=== PATIENT | male | born 1980 | race Hispanic/Latino ===

== ENCOUNTER 2017-01-04 13:03 | Emergency (ER) | payer SELFPAY | END 2017-01-04 14:13 | disposition home or self-care (01) | LOC: ERS 13:03 | DX: J06.9 Acute upper respiratory infection, unspecified (principal); F41.9 Anxiety disorder, unspecified; F32.9 Major depressive disorder, single episode, unspecified; F17.210 Nicotine dependence, cigarettes, uncomplicated | CPT/HCPCS: 99406 ==

== ENCOUNTER 2017-03-14 11:33 | Inpatient (IN) | payer SELFPAY ==
[~2017-03-14 11:33] MED LIST: ISOVUE-370 76%-LOCM 1 ML ONE
[2017-03-14] MEDS ORDERED: Octreotide Acetate 1,250 MCG in Sodium Chloride 0.9% 250 ML 250 ML IVPB SCH ×2 (12:45→15:00)
[2017-03-14 12:50] LABS: #Eosinphils 0.2 thou/uL (0.0-0.7); %Eosinophils 2.2 % (0.0-10.0); %Monocytes 8.2 % (0.0-10.0); Mean Corpuscular HGB CONC 33.7 g/dL (32.0-36.0)
[2017-03-14 13:02] LABS: #Lymphocytes 1.4 thou/uL (1.20-3.40); #Monocytes 0.6 thou/uL (0.11-0.59); #Neutrophils 5.3 thou/uL (1.40-6.50); %Basophils 0.5 % (0.0-1.0); %Lymphocytes 18.6 % (21.0-51.0); %Neutrophils 70.6 % (42.0-75.0); Hemoglobin 16.8 g/dL (14.0-18.0); Mean Corpuscular Hemoglobin 32.1 pg (27.0-31.0); Mean Corpuscular Volume 95.4 fl (80.0-94.0); Mean Platelet Volume 6.8 fL (7.4-10.4); Platelet Count 182 thou/uL (130-400); RBC Distribution Width 11.1 % (11.5-14.5); Red Blood Cell (RBC) Count 5.23 mill/uL (4.70-6.10); White Blood Cell (WBC) Count 7.4 thou/uL (4.8-10.8)
[2017-03-14] MEDS ORDERED: Ondansetron HCl/PF 4 MG/2 ML Vial ONE ×2 (13:06→15:59)
--- NOTE | 2017-03-14 13:14 | RAD ---
PORTABLE CHEST 1 VIEW: DATE: 03/14/17. TIME: 12:10 p.m. HISTORY: Vomiting blood. FINDINGS: The heart size is normal. The right hemidiaphragm is elevated. No focal areas of consolidation, pne umothorax, codie pulmonary edema, or pleural effusions are seen. IMPRESSION: No acute process. POS: [facility]
[2017-03-14 13:16] LABS: ALT (SGPT) 126 U/L (8-55); AST (SGOT) 194 U/L (5-34); Albumin 4.5 g/dL (3.5-5.0); Alkaline Phosphatase 85 U/L (40-150); Anion Gap 21 mmol/L (10-20); BUN (Urea Nitrogen) 5 mg/dL (8.9-20.6); Bilirubin, Total 1.7 mg/dL (0.2-1.2); CK (CPK) 246 U/L (30-200); Calc. Creatinine Clearance 0 mL/min (70-130); Calcium 9.9 mg/dL (7.8-10.44); Carbon Dioxide 20 mmol/L (22-29); Chloride 99 mmol/L (98-107); Estimated GFR-MDRD Greater than 90; Globulin 4.8 g/dL (2.4-3.5); Glucose 159 mg/dL (70-105); Potassium 3.3 mmol/L (3.5-5.1); Protein, Total 9.3 g/dL (6.0-8.3); Sodium 137 mmol/L (136-145)
[2017-03-14 13:20] LABS: CKMB 1.1 ng/mL (0-6.6); Troponin I Less than 0.010 ng/mL (< 0.028)
[2017-03-14] MEDS ORDERED: Multivitamins, Adult 10 ML, Thiamine HCl 100 MG, Folic Acid 1 MG in Dextrose 5 %-0.45 %... IV ONE ×4 (13:30)
[2017-03-14] MEDS ORDERED: Ondansetron ODT 4 MG TAB PO PRN (14:48)
[2017-03-14] MEDS ORDERED: Ondansetron HCl/PF 4 MG/2 ML Vial IVP PRN (14:48)
[2017-03-14] MEDS ORDERED: Bisacodyl 5 MG TAB PO PRN (14:48)
[2017-03-14] MEDS ORDERED: Pantoprazole 80 MG in Sodium Chloride 0.9% 100 ML IVPB SCH (15:00)
[2017-03-14] MEDS ORDERED: Octreotide Acetate 50 MCG/ML AMP SLOW IVP SCH (15:30)
--- NOTE | 2017-03-14 15:36 | CT ---
CT ABDOMEN WITH CONTRAST CT PELVIS WITH CONTRAST: DATE: 03-14-2017 TIME: 12:58 p.m. HISTORY: 56-year-old male with left upper quadrant abdominal pain and hemetemesis. Dr. Corona discussed the findings of the rectum by telephone with Dr. Marbella Melendez of the Emergency [facility] rt[facility] at 1:14 p.m. on 03-14-2017. COMPARISON: None. TECHNIQUE: IV injection of iodinated contrast media: Administered. Oral contrast media: Not administered. FINDINGS: There is diffuse circumferential mild mural thickening of the rectum and rectosigmoid junction. The r ectum is mildly distended with stool. There are several small foci of intramural gas at the rectum. T here is mild perirectal fat stranding, especially in the presacral space. These are all findings that can be seen with stercoral colitis/proctitis, but that is typically encountered in much older patien ts, and with a greater degree of rectal distention. Pneumatosis coli can be seen in benign conditions as well as life-threating conditions. Clinical correlation is recommended. No signs of acute colonic diverticulitis. The appendix, abdominal aorta, bilateral kidneys, adrenal g lands, pancreas and spleen are normal. Diffusely low hepatic attenuation is consistent with fatty jovita er. No discrete hepatic mass lesion. Gallbladder is distended, but there is no gallbladder wall thick ening or pericholecystic edema. No small bowel dilation. No acute colon diverticulitis. No gross abno rmality of the urinary bladder. No ascites, pneumoperitoneum or abscess. Lung bases are clear. IMPRESSION: 1. Hepatic steatosis. 2. Pneumatosis and mural thickening of the rectum and distal sigmoid colon, with perirectal edema. Se e above comments. SANDI Reyes POS: [facility]
--- NOTE | 2017-03-14 15:39 | HP ---
PRIMARY CARE PHYSICIAN: None. CHIEF COMPLAINT: Vomiting blood. HISTORY OF PRESENT ILLNESS: Mr. Evans is a pleasant 36-year-old gentleman who was seen at [facility] on 03/14/2017. He reports that over the last 2-3 months, he has been having vomiting. The vomiting is accompanied b y bright red blood. He denies any chest pain or lightheadedness. He denies any fevers or chills. H e reports on and off pain in the right upper quadrant of his abdomen, attributes it to "liver pain." He has also been taking Aleve 3 times a day as needed. He reports worsening of vomiting, with 12 vomiting episodes in the last 24 hours, accompanied by bloo d. He therefore came to the emergency room. REVIEW OF SYSTEMS: The following complete review of systems was negative, unless otherwise mentioned in the HPI or below: Constitutional: Weight loss or gain, sense of well-being, ability to conduct usual activities, exerc ise tolerance. Skin/Breast: Rash, itching, changes in hair growth or loss, nail changes, breast lumps, tenderness, swelling, nipple discharge. Eyes: Vision, double vision, tearing, blind spots, pain. ENT/Mouth: Headaches (location, time of onset, duration, precipitating factors), vertigo, lightheade dness, injury. Vision, double vision, tearing, blind spots, pain, nose bleeding, colds, obstruction, discharge, dental difficulties, gingival bleeding, dentures, neck stiffness, pain, tenderness, masses in thyroid or other areas Cardiovascular: Precordial pain, substernal distress, palpitations, syncope, dyspnea on exertion, or thopnea, nocturnal paroxysmal dyspnea, edema, cyanosis, hypertension, heart murmurs, varicosities, ph lebitis, claudication. Respiratory: Pain, shortness of breath, wheezing, stridor, cough, hemoptysis, fever or night sweats Gastrointestinal: Poor appetite, dysphagia, indigestion, abdominal pain, heartburn, eructation, naus ea, vomiting, hematemesis, jaundice, constipation, or diarrhea, abnormal stools (raghu-colored, tarry, bloody, greasy, foul smelling), flatulence, hemorrhoids, recent changes in bowel habits. Genitourinary: Urgency, frequency, dysuria, nocturia, hematuria, polyuria, oliguria, unusual (or gayla nge in) color of urine, stones, hesitancy, change in size of stream, dribbling, acute retention or in continence, libido, potency. Musculoskeletal: Pain, swelling, redness or heat of muscles or joints, limitation, of motion, muscul ar weakness, atrophy, cramps. Neurologic/Psychiatric: Convulsions, paralyses, tremor, incoordination, paraesthesias, difficulties with memory of speech, sensory or motor disturbances, or muscular coordination (ataxia, tremor), emot ional problems, anxiety, depression, previous psychiatric care, unusual perceptions, hallucinations. Allergy/Immunologic: Skin rash, anemia, bleeding tendency, polydipsia, polyuria, intolerance to heat or cold. PAST MEDICAL HISTORY: He reports that he has heart rate that is greater than normal. PAST SURGICAL HISTORY: Right hand surgery. PSYCHIATRIC HISTORY: Anxiety and depression. SOCIAL HISTORY: The patient reports that he drinks on a daily basis. Half a gallon of whiskey, last in 48-72 hours. He has been drinking for 15 years. His last drink was today morning. He also repo rts occasional tobacco use. He denies recreational drug use. FAMILY HISTORY: Significant for alcoholism in his father and uncles. ALLERGIES: FLUOXETINE. CURRENT MEDICATIONS: Include propranolol 40 mg 2 times a day and clonazepam 2 mg 2 times a day as ne eded. PHYSICAL EXAMINATION: GENERAL: On examination, Mr. Evans is awake and alert, not in acute distress. VITAL SIGNS: Blood pressure is 117/63, pulse is 70. He is breathing at rate of 18, and saturating 9 4% on room air. He is afebrile. EYES: Scleral icterus present, no conjunctival pallor. ENT: Moist mucosal membranes, no oropharyngeal erythema or exudates. NECK: Supple, nontender, normal range of movement, trachea is midline. RESPIRATORY: Accessory muscles of breathing are not active. Chest wall movements are symmetric bila terally. LUNGS: Clear to auscultation without wheeze, rhonchi or crepitations. CARDIOVASCULAR: S1 and S2 are heard, regular. Peripheral pulses are palpable. No carotid bruit, no pericardial rub. ABDOMEN: Distended, mild right upper quadrant tenderness, no guarding or rigidity, bowel sounds are heard. NEUROLOGIC: Cranial nerves II-XII intact. Deep tendon reflexes are 2+. No flapping tremor. MUSCULOSKELETAL: Power is 5/5 in all 4 extremities. Normal range of movement at all major extremity joints. SKIN: No rashes, spider nevi or subcutaneous nodules. LYMPHATIC: No cervical lymphadenopathy. PSYCHIATRIC: Normal mood, normal affect, patient is oriented to person, place, and time. IMAGING DATA AND LABORATORY DATA: Mr. Evans's labs and investigations were reviewed. I reviewed his electrocardiogram, which shows normal sinus rhythm, no ST changes to suggest an acute coronary sy ndrome. I also reviewed his chest x-ray, which does not show any pulmonary infiltrates. He also had CT scan of the abdomen, report is pending at this time. Laboratory investigation show normal white count, normal hemoglobin of 6.9, normal platelet count, normal sodium, decreased potassium of 3.3, no rmal creatinine of 0.69, decreased carbon dioxide of 20, elevated anion gap of 21, elevated total monica irubin of 1.7,AST elevated at 194, ALT elevated at 126, normal alkaline phosphatase, normal troponin I and normal albumin. ASSESSMENT AND PLAN: Mr. Evans is a pleasant 36-year-old gentleman who was seen at [facility] on 03/14/2017. His problem list includes: 1. Hematemesis: Patient reports hematemesis. He is hemodynamically stable at this time, hemoglobin is normal. He will be admitted to the hospital for further management. He will be treated with oct reotide and Protonix drips. Gastroenterology Service has been consulted by emergency room physician. We will monitor hemoglobin and hematocrit and we will monitor vital signs. 2. Hypokalemia: Replace potassium. 3. Abnormal liver function tests, likely secondary to chronic alcohol abuse. He does have normal al bumin at this time. 4. Alcohol abuse: The patient has been counseled regarding alcohol cessation. We will start him on ASE protocol. 5. Elevated anion gap: Check lactic acid level. LEVEL OF RISK: High. LEVEL OF COMPLEXITY: High.
[2017-03-14] MEDS ORDERED: Fentanyl 100 MCG/2 ML VIAL ONE (15:40)
[2017-03-14 15:46] LABS: Lactic Acid 2.3 mmol/L (0.5-2.2)
[2017-03-14 15:47] LABS: Prothrombin Time 13.7 SEC (12.0-14.7)
[2017-03-14] MEDS ORDERED: GoLYTELY 4,000 ml Bottle PO SCH (17:45)
--- NOTE | 2017-03-14 18:00 | CON ---
DATE OF CONSULTATION: 03/14/2017 GASTROINTESTINAL CONSULTATION CHIEF COMPLAINT: Vomited blood, chronic nausea, and vomiting. HISTORY OF PRESENT ILLNESS: Mr. Evans is a 36-year-old man who drinks half a gallon of whiskey ev familia couple of days. He has been having nausea and vomiting daily over the last couple of months. He retches frequently throughout the day and intermittently he vomits up a small amount of blood. Last night, he vomited up a couple of ounces with hematemesis and therefore he came onto the emergency ro om for further care. He has had no abdominal pain associated with this. No diarrhea, constipation o r blood in the stool. No black stools. He was noted to be hemoccult negative in the ER. Weight has been stable. PAST MEDICAL HISTORY: Anxiety. PAST SURGICAL HISTORY: Hand surgery. FAMILY HISTORY: Positive for alcoholic cirrhosis in his father and liver cancer in his father. SOCIAL HISTORY: He has been off of drugs since age 31. He did nasal cocaine and nasal methamphetami mireya in the past. He has not smoked for a week, but has been a smoker prior to that. He drinks half a gallon of whiskey every couple of days or so. ALLERGIES: FLUOXETINE. CURRENT MEDICATIONS: As an outpatient, trazodone, clonazepam, and propranolol. REVIEW OF SYSTEMS: Negative x10 systems reviewed except as stated in the history of present illness. LABORATORY DATA: White blood cell count 7.4, hemoglobin 16.8, platelets 182, INR 1.0. Creatinine 0. 9, bilirubin 1.7, AST 194, ALT 126, alkaline phosphatase 85, and albumin 4.5. IMPRESSION: 1. Hematemesis. He has had chronic nausea and vomiting associated with excessive alcohol use and rachid cisneros has alcoholic gastritis. The blood that comes up with vomiting after retching sounds more like mild Lynn-Crane tears. He does not have signs of portal hypertension, otherwise. His volume of b leeding has been very small and his hemoglobin is normal. There is no indication that this is bleedi ng from esophageal varices. I think we can stop the octreotide at this point. 2. Abnormal CT scan. The CT showed thickening and possible pneumatosis around the rectosigmoid junc tion. He has no hematochezia, constipation or diarrhea. Colonoscopy is indicated to rule out colon cancer in this area. 3. Alcoholic hepatitis with elevated transaminases and bilirubin. RECOMMENDATIONS: 1. EGD and colonoscopy tomorrow. 2. Continue proton pump inhibitor. 3. He is on octreotide drip. We can continue this till the endoscopy. 4. Alcohol cessation is advised.
[2017-03-14] MEDS ORDERED: Promethazine HCl 25 MG/ML VIAL SLOW IVP PRN (18:10)
[2017-03-14] MEDS: NS 0.9% w/ 40 MEQ KCL 1,000 ML IV SCH (18:20)
[2017-03-14] MEDS: Morphine 4 MG/ML VIAL SLOW IVP PRN ×2 (18:53→23:52)
[2017-03-15] MEDS ORDERED: Diazepam 5 MG TAB PO SCH (01:00)
[2017-03-15] MEDS ORDERED: Diazepam 5 MG TAB PO PRN (01:05)
[2017-03-15] MEDS: NS 0.9% w/ 40 MEQ KCL 1,000 ML IV SCH ×2 (01:24→21:30)
[2017-03-15 02:25] LABS: Amphetamine Not Detected (NotDetected); Barbiturates Screen Not Detected (NotDetected); Benzodiazepine Screen Not Detected (NotDetected); Cocaine Metabolite Screen Not Detected (NotDetected); Medtox Control Line Valid? VALID (VALID); Medtox Reader # READER 4; Methadone Not Detected (NotDetected); Methamphetamine Not Detected (NotDetected); Opiate Screen Detected (NotDetected); Oxycodone Screen Not Detected (NotDetected); Phencyclidine (PCP) Not Detected (NotDetected); THC/Cannabinoid Screen Detected (NotDetected); Tricyclic Screen Not Detected (NotDetected)
[2017-03-15 05:36] LABS: ALT (SGPT) 117 U/L (8-55); AST (SGOT) 186 U/L (5-34); Albumin 3.8 g/dL (3.5-5.0); Alkaline Phosphatase 63 U/L (40-150); Anion Gap 15 mmol/L (10-20); BUN (Urea Nitrogen) 4 mg/dL (8.9-20.6); Bilirubin, Total 1.7 mg/dL (0.2-1.2); Calc. Creatinine Clearance 210 mL/min (70-130); Calcium 8.8 mg/dL (7.8-10.44); Carbon Dioxide 26 mmol/L (22-29); Chloride 100 mmol/L (98-107); Estimated GFR-MDRD Greater than 90; Globulin 3.8 g/dL (2.4-3.5); Glucose 199 mg/dL (70-105); Potassium 3.6 mmol/L (3.5-5.1); Protein, Total 7.6 g/dL (6.0-8.3); Sodium 137 mmol/L (136-145)
[2017-03-15 05:54] LABS: Syphilis Antibody Nonreactive (Nonreactive); Syphilis Antibody Index 0.08 S/CO (<1.00 Non-Reactive)
[2017-03-15 05:56] LABS: #Eosinphils 0.1 thou/uL (0.0-0.7); #Monocytes 0.3 thou/uL (0.11-0.59); #Neutrophils 2.3 thou/uL (1.40-6.50); %Basophils 1.1 % (0.0-1.0); %Eosinophils 2.8 % (0.0-10.0); %Lymphocytes 25.9 % (21.0-51.0); %Monocytes 8.5 % (0.0-10.0); %Neutrophils 61.8 % (42.0-75.0); Hemoglobin 13.9 g/dL (14.0-18.0); Mean Corpuscular HGB CONC 33.6 g/dL (32.0-36.0); Mean Corpuscular Hemoglobin 32.4 pg (27.0-31.0); Mean Corpuscular Volume 96.5 fl (80.0-94.0); Mean Platelet Volume 7.1 fL (7.4-10.4); PLT Morphology Comment Appears Decreased; Platelet Count 97 thou/uL (130-400); RBC Distribution Width 11.2 % (11.5-14.5); Red Blood Cell (RBC) Count 4.29 mill/uL (4.70-6.10); White Blood Cell (WBC) Count 3.7 thou/uL (4.8-10.8)
[2017-03-15] MEDS: Multivitamin W/ Minerals 1 TAB PO SCH (08:49)
[2017-03-15] MEDS: Folic Acid 1 MG TAB PO SCH (08:49)
[2017-03-15] MEDS: Morphine 4 MG/ML VIAL SLOW IVP PRN (08:50)
[2017-03-15 09:03] VITALS: BMI 34.6
[2017-03-15] MEDS ORDERED: clonazePAM 1 MG TAB PO PRN (09:05)
[2017-03-15 10:12] LABS: Magnesium 1.8 mg/dL (1.6-2.6); Phosphorus 2.7 mg/dL (2.3-4.7)
[2017-03-15] MEDS ORDERED: clonazePAM 0.5 MG TAB PO SCH (11:00)
--- NOTE | 2017-03-15 15:02 | OP ---
DATE OF PROCEDURE: 03/15/2017 PROCEDURES: Esophagogastroduodenoscopy with biopsy and colonoscopy. PREOPERATIVE DIAGNOSES: Chronic nausea and vomiting and hematemesis and abnormal CT scan showing nicho e possible thickening at the rectosigmoid. OPERATIVE NOTE: Informed consent was obtained from the patient. He was sedated with total intraveno us anesthesia. The bite block was placed and the endoscope was advanced easily to the second portion of the duodenum and retroflexion was performed in the stomach. The esophagus was normal. The GE ju nction was normal. The stomach had severe erosive gastritis in the antrum. Biopsies were obtained t o rule out H. pylori. The retroflexed views in the stomach were unremarkable. The pylorus in first and second portions of the duodenum were normal. Duodenal biopsies were taken to rule out celiac dis ease. The patient was turned around. Rectal exam was performed and was normal. The colonoscope was advanced to the terminal ileum without difficulty. The mucosa of the terminal ileum was normal. Th e ileocecal valve and appendiceal orifice were clearly identified. The preparation quality was good. There was mild diverticulosis at the hepatic flexure. The remainder of the colonic mucosa was norm al. Retroflexed views in the rectum were normal. IMPRESSION: 1. Severe erosive gastritis in the antrum. Biopsies obtained to rule out Helicobacter pylori. 2. Otherwise normal esophagogastroduodenoscopy. Duodenal biopsies taken to rule out celiac disease. 3. Diverticulosis at the hepatic flexure. 4. Otherwise normal ileal colonoscopy. RECOMMENDATIONS: 1. Await histopathology. 2. Proton pump inhibitor daily. 3. Alcohol cessation. 4. Marijuana cessation. 5. Okay to discharge home from a GI perspective. 6. Follow up in the office in a month.
[2017-03-15] MEDS ORDERED: Lorazepam 0.5 MG TAB PO PRN (16:54)
[2017-03-15] MEDS ORDERED: Propofol 200 MG/20 ML VIAL ONE (17:04)
[2017-03-15] MEDS: Diabetic Tussin 200 MG/10 ML UDCUP PO PRN (18:43)
[2017-03-15] MEDS: Cepastat Lozenges 1 LOZ PO PRN (21:29)
[2017-03-15] MEDS: Acetaminophen 500 MG TAB PO PRN (21:29)
[2017-03-15] MEDS: guaiFENesin ER 600 MG TAB PO SCH (21:30)
--- NOTE | 2017-03-15 22:22 | PDOC.PN ---
- Subjective Encounter Start Date: 03/15/17 Encounter Start Time: 11:30 Patient seen and examined. No new complaints. No new GI bleed episode. No overnight events - Objective MAR Reviewed: Yes Vital Signs & Weight: Vital Signs (12 hours) Temp Pulse Resp BP Pulse Ox 03/15/17 16:00 98.6 F 82 20 153/90 H 95 03/15/17 12:00 98.6 F 86 16 145/85 H 97 Weight Admit Weight 236 lb Weight 234 lb 8 oz I&O: 03/14/17 03/15/17 03/16/17 06:59 06:59 06:59 Intake Total 3826 Output Total 1300 Balance 2526 Result Diagrams: 03/16/17 05:33 03/16/17 05:33 EKG Reviewed by me: Yes (Tele SR) Phys Exam - Physical Examination Constitutional: NAD Respiratory: no wheezing, no rales, no rhonchi, clear to auscultation bilateral Cardiovascular: RRR, no rub Gastrointestinal: soft, non-tender, no distention, positive bowel sounds Musculoskeletal: no edema Neurological: non-focal, moves all 4 limbs Psychiatric: A&O x 3 Dx/Plan - Plan DVT proph w/SCDs IMPRESSION: 1. UGI bleed 2. Anemia due to acute GI blood loss 3. Chronic alcoholism 4. Cannabis abuse 5. Hypokalemia/Lactic acidosis/Abn LFTs/Pancytopenia prob due to alcoholism PLAN: * EGD/Colon today * Cont PPI/Octreotide * Counselled to quit drug/Alcohol * GI following * Monitor Review of Systems - Review of Systems Respiratory: negative: Cough, Dry, Shortness of Breath, Hemoptysis, SOB with Excertion, Pleuritic Pain, Sputum, Wheezing Cardiovascular: negative: chest pain, palpitations, orthopnea, paroxysmal nocturnal dyspnea, edema, light headedness - Medications/Allergies Allergies/Adverse Reactions: Allergies Allergy/AdvReac Type Severity Reaction Status Date / Time fluoxetine AdvReac Verified 03/14/17 20:02 Medications: Current Medications Acetaminophen (Tylenol) 1,000 mg PO Q6H PRN PRN Reason: Headache/Fever or Pain Last Admin: 03/15/17 21:29 Dose: 1,000 mg Bisacodyl (Dulcolax) 10 mg PO DAILYPRN PRN PRN Reason: Constipation Clonazepam (Klonopin) 1 mg PO BIDPRN PRN PRN Reason: Anxiety Folic Acid (Folvite) 1 mg PO DAILY [facility] Last Admin: 03/15/17 08:49 Dose: 1 mg Guaifenesin (Robitussin Sf) 200 mg PO Q4H PRN PRN Reason: Cough Last Admin: 03/15/17 18:43 Dose: 200 mg Guaifenesin (Mucinex) 600 mg PO Q12HR [facility] Last Admin: 03/15/17 21:30 Dose: 600 mg Potassium Chloride/Sodium Chloride (Ns 0.9% W/ 40 Meq Kcl) 1,000 mls @ 75 mls/ hr IV .[id number] [facility] Last Admin: 03/15/17 21:30 Dose: 1,000 mls Iron/Minerals/Multivitamins (Theragran M) 1 tab PO DAILY [facility] Last Admin: 03/15/17 08:49 Dose: 1 tab Lorazepam (Ativan) 0.5 mg PO Q4H PRN PRN Reason: ASE >9 Ondansetron HCl (Zofran Odt) 4 mg PO Q6H PRN PRN Reason: Nausea/Vomiting Last Admin: 03/15/17 11:52 Dose: 4 mg Ondansetron HCl (Zofran) 4 mg IVP Q6H PRN PRN Reason: Nausea/Vomiting Pantoprazole Sodium (Protonix) 40 mg PO DAILY [facility] Promethazine HCl (Phenergan) 25 mg SLOW IVP Q8H PRN PRN Reason: Nausea Thiamine HCl (Thiamine) 100 mg PO DAILY [facility] Throat Lozenges (Cepastat Lozenges) 1 mane PO Q2H PRN PRN Reason: Sore Throat Last Admin: 03/15/17 21:29 Dose: 1 mane
[2017-03-16] MEDS: Cepastat Lozenges 1 LOZ PO PRN (03:33)
[2017-03-16] MEDS: Acetaminophen 500 MG TAB PO PRN (03:34)
[2017-03-16] MEDS ORDERED: Diazepam 5 MG TAB PO PRN (04:00)
[2017-03-16 06:27] LABS: #Eosinphils 0.1 thou/uL (0.0-0.7); #Monocytes 0.4 thou/uL (0.11-0.59); #Neutrophils 2.6 thou/uL (1.40-6.50); %Basophils 0.7 % (0.0-1.0); %Eosinophils 3.2 % (0.0-10.0); %Lymphocytes 23.3 % (21.0-51.0); %Neutrophils 63.8 % (42.0-75.0); Hemoglobin 13.8 g/dL (14.0-18.0); Mean Corpuscular HGB CONC 33.6 g/dL (32.0-36.0); Mean Corpuscular Volume 98.1 fl (80.0-94.0); Mean Platelet Volume 6.9 fL (7.4-10.4); Platelet Count 92 thou/uL (130-400); RBC Distribution Width 11.2 % (11.5-14.5); Red Blood Cell (RBC) Count 4.18 mill/uL (4.70-6.10); White Blood Cell (WBC) Count 4.1 thou/uL (4.8-10.8)
[2017-03-16 06:31] LABS: Anion Gap 14 mmol/L (10-20); BUN (Urea Nitrogen) 9 mg/dL (8.9-20.6); Calc. Creatinine Clearance 201 mL/min (70-130); Calcium 9.2 mg/dL (7.8-10.44); Carbon Dioxide 25 mmol/L (22-29); Chloride 102 mmol/L (98-107); Estimated GFR-MDRD Greater than 90; Glucose 141 mg/dL (70-105); Potassium 3.7 mmol/L (3.5-5.1); Sodium 137 mmol/L (136-145)
[2017-03-16] MEDS ORDERED: Magnesium Oxide 400 MG TAB PO SCH (09:00)
[2017-03-16] MEDS: guaiFENesin ER 600 MG TAB PO SCH (09:29)
[2017-03-16] MEDS: Folic Acid 1 MG TAB PO SCH (09:29)
[2017-03-16] MEDS: Multivitamin W/ Minerals 1 TAB PO SCH (09:29)
[2017-03-16] MEDS: Diabetic Tussin 200 MG/10 ML UDCUP PO PRN (12:00)
[2017-03-16 12:20] VITALS: TEMP 97.8
[2017-03-16 15:03] VITALS: BP 108/70
--- NOTE | 2017-03-17 07:30 | DIS ---
DATE OF ADMISISON: 03/14/2017 DATE OF DISCHARGE: 03/16/2017 DISCHARGE DISPOSITION: Home. FOLLOWUP: 1. Follow up with primary care physician at [facility] in 1 week. 2. Follow up with Dr. Jose De Jesus Matson in 2-3 weeks. INPATIENT CONSULTANTS: Gastroenterology, Dr. Matson. The patient was seen and examined on the day of discharge. Denies any new complaints. No new episod es of GI bleeding. DISCHARGE MEDICATIONS: Same as admission medications with the addition of thiamine, folic acid, and multivitamins. Protonix was added due to gastritis. ALLERGIES: Patient is allergic to PROZAC. BRIEF HOSPITAL COURSE: Patient is a 36-year-old male with chronic alcoholism who presented to the [facility] with hematemesis. Please refer to the history and physical dated 03/14/2017 for further detai ls. The patient was admitted to the hospital with a diagnosis of upper GI bleeding. He was placed on Pro tonix as well as octreotide drip. He underwent EGD that was consistent with severe erosive gastritis in the antrum. Colonoscopy was essentially normal except for diverticulosis. He was advised to dov e Protonix on a daily basis. Alcohol as well as cannabis cessation was emphasized. His H&H is stabl e at 13 over the last 48 hours. FINAL DIAGNOSES: 1. Upper gastrointestinal bleeding secondary to gastritis. 2. Chronic alcoholism. 3. Cannabis abuse. 4. Obesity with a BMI of 34.3. 5. Anemia secondary to acute gastrointestinal blood loss. 6. Hypokalemia, corrected. 7. Lactic acidosis secondary to dehydration on admission. 8. Abnormal liver function tests, probably secondary to alcoholism. 9. Pancytopenia, probably secondary to chronic alcoholism. Plan of care was discussed with the patient in detail. He stated understanding.
== END 2017-03-16 13:26 | disposition home or self-care (01) | DRG 378 ==
LOC: ERS 11:33 → 2NO 16:59
PROVIDERS: ADMIT Internal Medicine; ATTEND Internal Medicine
PROC: 0DB98ZX Excision of Duodenum, Via Natural or Artificial Opening Endoscopic, Diagnostic (ICD-10-PCS; principal; 2017-03-15)
PROC: 0DJD8ZZ Inspection of Lower Intestinal Tract, Via Natural or Artificial Opening Endoscopic (ICD-10-PCS; 2017-03-15)
DX: K29.01 Acute gastritis with bleeding (principal); D62 Acute posthemorrhagic anemia; D61.818 Other pancytopenia; E87.2 Acidosis; E86.0 Dehydration; E87.6 Hypokalemia; F41.9 Anxiety disorder, unspecified; F32.9 Major depressive disorder, single episode, unspecified; F10.10 Alcohol abuse, uncomplicated; Z88.8 Allergy status to other drugs, medicaments and biological substances; K57.30 Diverticulosis of large intestine without perforation or abscess without bleeding; F12.10 Cannabis abuse, uncomplicated; E66.9 Obesity, unspecified; Z68.34 Body mass index [BMI] 34.0-34.9, adult; K70.10 Alcoholic hepatitis without ascites; F17.210 Nicotine dependence, cigarettes, uncomplicated
CPT/HCPCS: 36415; 71045; 74177; 80048; 80053; 80306; 82248; 82274; 82550; 82553; 83605; 83735; 84100; 84484; 85025; 85610; 86780; 86850; 86900; 86901; 88305; 88312; 93005; 96365; 96366; 96368; 96375; 96376; C9113; J0696; J2270; J2354; J2405; J2550; J2704; J3010; J3411; J3475; J7042; J7050; Q0162

== ENCOUNTER 2019-01-08 14:40 | Emergency (ER) | payer SELFPAY ==
[2019-01-08] MEDS ORDERED: Lactated Ringer's 1,000 ML IV SCH (15:15)
[2019-01-08 15:16] LABS: #Eosinphils 0.1 thou/uL (0.0-0.7); #Lymphocytes 0.9 thou/uL (1.20-3.40); #Monocytes 0.4 thou/uL (0.11-0.59); #Neutrophils 6.1 thou/uL (1.40-6.50); %Basophils 0.1 % (0.0-1.0); %Eosinophils 0.9 % (0.0-10.0); %Lymphocytes 12.2 % (21.0-51.0); %Monocytes 5.7 % (0.0-10.0); Hemoglobin 14.9 g/dL (14.0-18.0); Mean Corpuscular HGB CONC 33.6 g/dL (32.0-36.0); Mean Corpuscular Hemoglobin 33.5 pg (27.0-31.0); Mean Corpuscular Volume 99.6 fL (78.0-98.0); Mean Platelet Volume 7.4 fL (7.4-10.4); Platelet Count 120 thou/uL (130-400); RBC Distribution Width 11.4 % (11.5-14.5); Red Blood Cell (RBC) Count 4.44 mill/uL (4.70-6.10); White Blood Cell (WBC) Count 7.5 thou/uL (4.8-10.8)
[2019-01-08 15:37] LABS: ALT (SGPT) 81 U/L (8-55); AST (SGOT) 113 U/L (5-34); Acetaminophen Less than 6.0 mcg/mL (10.0-30.0); Albumin 4.2 g/dL (3.5-5.0); Alcohol Less than 10 mg/dL (Less than 10); Alkaline Phosphatase 77 U/L (40-110); Anion Gap 14 mmol/L (10-20); BUN (Urea Nitrogen) 8 mg/dL (8.9-20.6); Bilirubin, Total 1.3 mg/dL (0.2-1.2); CK (CPK) 92 U/L (30-200); Calc. Creatinine Clearance 0 mL/min (70-130); Calcium 10.3 mg/dL (7.8-10.44); Carbon Dioxide 25 mmol/L (22-29); Chloride 99 mmol/L (98-107); Estimated GFR-MDRD Greater than 90; Globulin 4.3 g/dL (2.4-3.5); Glucose 152 mg/dL (70-105); Potassium 3.3 mmol/L (3.5-5.1); Protein, Total 8.5 g/dL (6.0-8.3); Salicylate Less than 8.0 mg/dL (15.0-30.0); Sodium 135 mmol/L (136-145)
--- NOTE | 2019-01-08 16:04 | RAD ---
XR Chest 1 View Portable History: Hallucinations and dizziness Comparison: Radiograph 2018 Findings: Lungs are clear. No pneumothorax or effusions. Cardiac silhouette and mediastinal contours are within normal limits. Old left acromioclavicular joint injury. Impression: No acute intrathoracic abnormality.
== END 2019-01-08 17:08 | disposition home or self-care (01) ==
LOC: ERS 14:40
DX: R42 Dizziness and giddiness (principal); I10 Essential (primary) hypertension; F25.9 Schizoaffective disorder, unspecified; F41.9 Anxiety disorder, unspecified; F20.9 Schizophrenia, unspecified; F17.210 Nicotine dependence, cigarettes, uncomplicated; Z79.899 Other long term (current) drug therapy
CPT/HCPCS: 71045; 80053; 80307; 82550; 84484; 85025; 93005; 96360

== ENCOUNTER 2019-07-06 16:00 | Emergency (ER) | payer SELFPAY ==
[2019-07-06] MEDS ORDERED: Adacel (T-DAP) 0.5 ML SYRINGE ONE (16:15)
[2019-07-06 18:02] LABS: Acetaminophen Less than 6.0 mcg/mL (10.0-30.0); Alcohol 239 mg/dL (Less than 10); Salicylate Less than 8.0 mg/dL (15.0-30.0)
[2019-07-06] MEDS ORDERED: Ibuprofen 200 MG TAB ONE (18:37)
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
== END 2019-07-06 20:47 ==
LOC: ERS 16:00
DX: S01.01XA Laceration without foreign body of scalp, initial encounter (principal); F10.129 Alcohol abuse with intoxication, unspecified; G93.0 Cerebral cysts; I10 Essential (primary) hypertension; F41.9 Anxiety disorder, unspecified; F32.9 Major depressive disorder, single episode, unspecified; F17.210 Nicotine dependence, cigarettes, uncomplicated; F25.9 Schizoaffective disorder, unspecified; Y90.7 Blood alcohol level of 200-239 mg/100 ml
CPT/HCPCS: 12001; 36415; 70450; 72125; 80307; 90471; 90715; 96360

== ENCOUNTER 2019-09-26 05:23 | Emergency (ER) | payer SELFPAY ==
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
== END 2019-09-26 07:53 | disposition home or self-care (01) ==
LOC: ERS 05:23
DX: S09.90XA Unspecified injury of head, initial encounter (principal); S40.012A Contusion of left shoulder, initial encounter; S50.311A Abrasion of right elbow, initial encounter; I10 Essential (primary) hypertension; F41.9 Anxiety disorder, unspecified; F32.9 Major depressive disorder, single episode, unspecified; F17.210 Nicotine dependence, cigarettes, uncomplicated; F25.9 Schizoaffective disorder, unspecified; Y04.8XXA Assault by other bodily force, initial encounter
CPT/HCPCS: 70450

== ENCOUNTER 2020-04-07 21:04 | Emergency (ER) | payer SELFPAY | END 2020-04-07 21:17 | LOC: ERS 21:04 | DX: Z02.89 Encounter for other administrative examinations (principal); I10 Essential (primary) hypertension; E11.9 Type 2 diabetes mellitus without complications; F17.210 Nicotine dependence, cigarettes, uncomplicated | CPT/HCPCS: 99282 ==

== ENCOUNTER 2020-10-28 15:50 | Inpatient (IN) | payer OTHER, SELFPAY ==
[~2020-10-28 15:50] MED LIST changes: -ISOVUE-370 76%-LOCM 1 ML ONE; +Rocuronium Bromide 10 MG/ML (10ML VIAL) ONE
[2020-10-28] MEDS ORDERED: Fentanyl 250 MCG/5 ML VIAL ONE (16:02)
[2020-10-28] MEDS ORDERED: Phenylephrine 10 MG/ML VIAL ONE (16:03)
[2020-10-28] MEDS ORDERED: Norepinephrine 4 MG/4 ML VIAL ONE (16:03)
[2020-10-28] MEDS ORDERED: Heparin 5,000 UNITS/ML VIAL ONE (16:15)
[2020-10-28] MEDS ORDERED: Heparin 10,000 UNITS/ 10 ML VIAL ONE (16:17)
[2020-10-28 16:20] LABS: #Basophils 0.1 thou/uL (0.0-0.2); #Eosinphils 0.1 thou/uL (0.0-0.7); #Lymphocytes 3.7 thou/uL (1.20-3.40); #Monocytes 0.4 thou/uL (0.11-0.59); #Neutrophils 4.7 thou/uL (1.40-6.50); %Basophils 1.4 % (0.0-1.0); %Eosinophils 1.3 % (0.0-10.0); %Monocytes 4.1 % (0.0-10.0); %Neutrophils 52.2 % (42.0-75.0); Hemoglobin 13.3 g/dL (14.0-18.0); Mean Corpuscular HGB CONC 34.8 g/dL (32.0-36.0); Mean Corpuscular Hemoglobin 33.9 pg (27.0-31.0); Mean Corpuscular Volume 97.5 fL (78.0-98.0); Mean Platelet Volume 6.6 fL (7.4-10.4); Platelet Count 204 thou/uL (130-400); RBC Distribution Width 15.4 % (11.5-14.5); Red Blood Cell (RBC) Count 3.91 mill/uL (4.70-6.10)
[2020-10-28 16:30] LABS: INR-International Normal Ratio 1.3; PTT 23.9 sec (22.9-36.1); Prothrombin Time 16.2 sec (12.0-14.7)
[2020-10-28 16:40] LABS: ALT (SGPT) 38 U/L (8-55); AST (SGOT) 158 U/L (5-34); Albumin 2.6 g/dL (3.5-5.0); Alkaline Phosphatase 75 U/L (40-110); Anion Gap 21 mmol/L (10-20); BUN (Urea Nitrogen) 5 mg/dL (8.9-20.6); Bilirubin, Total 0.3 mg/dL (0.2-1.2); Calc. Creatinine Clearance 0 mL/min (70-130); Calcium 6.6 mg/dL (7.8-10.44); Carbon Dioxide 14 mmol/L (22-29); Chloride 109 mmol/L (98-107); Globulin 3.2 g/dL (2.4-3.5); Glucose 286 mg/dL (70-105); Potassium 4.3 mmol/L (3.5-5.1); Protein, Total 5.8 g/dL (6.0-8.3); Sodium 140 mmol/L (136-145)
[2020-10-28] MEDS ORDERED: Calcium Chloride 1 GM/10 ML Abboject SYRINGE ONE (16:45)
[2020-10-28] MEDS ORDERED: PROPOFOL 200 MG/20 ML VIAL ONE (16:45)
[2020-10-28] MEDS ORDERED: Rocuronium Bromide 10 MG/ML (10ML VIAL) ONE (16:45)
[2020-10-28] MEDS ORDERED: Dextrose 50% Abboject 50 ML SYRINGE SLOW IVP PRN (17:24)
[2020-10-28] MEDS ORDERED: Dextrose 5% in Water 1,000 ML IV PRN (17:24)
[2020-10-28] MEDS ORDERED: Ondansetron PF 4 MG/2 ML Vial IVP PRN (17:24)
[2020-10-28] MEDS ORDERED: Ventilator Sedation Protocol 1 EACH FS ONE (17:30)
[2020-10-28] MEDS ORDERED: Propofol 1,000 MG/100 ML VIAL IV ONE (18:22)
[2020-10-28 18:26] LABS: Actual Bicarbonate (HCO3a) 21.3 mEq/L (22-28); Base Excess (BEa) -4.4 mEq/L (-2.0 to +3.0); CO2 Tension 41.9 mmHg (35.0-45.0); Calcium, Ionized (arterial) 1.32 mmol/L (1.12-1.30); Carboxyhemoglobin (COHb) 0.6 gm% (0.0-3.0); Hemoglobin (Hb) 12.8 g/dL (14.0-18.0); O2 Tension (PaO2), arterial 84.5 mmHg (80.0-100.0); Potassium - ABG Lab 4.03 mmol/L (3.70-5.30); pH, Arterial 7.33 (7.35-7.45)
[2020-10-28 18:29] LABS: Puncture Site Arterial Line
[2020-10-28 18:30] LABS: ALV-art Gradient 219.625 mmHg (0-20)
[2020-10-28] MEDS ORDERED: Fentanyl BOLUS 250 ML IVPB PRN (18:30)
[2020-10-28] MEDS ORDERED: Propofol BOLUS 1,000 MG/100 ML VIAL IV PRN (18:30)
[2020-10-28] MEDS ORDERED: Sodium Chloride 0.9% 1,000 ML IV SCH (18:30)
[2020-10-28] MEDS ORDERED: Fentanyl CADD 100 ML IV SCH (18:30)
[2020-10-28] MEDS ORDERED: DISCONTINUE PREVIOUS NARCOTIC PAIN MEDICATIONS AND BENZODIAZEPINES FS SCH (18:30)
[2020-10-28] MEDS ORDERED: Fentanyl 100 MCG/2 ML VIAL ONE ×2 (18:35→18:52)
[2020-10-28] MEDS ORDERED: Lorazepam 2 MG/ML VIAL ONE (19:03)
[2020-10-28 20:04] LABS: Hemoglobin 12.7 g/dL (14.0-18.0); Mean Corpuscular Volume 94.2 fL (78.0-98.0); Mean Platelet Volume 6.9 fL (7.4-10.4); Platelet Count 177 thou/uL (130-400); Red Blood Cell (RBC) Count 3.85 mill/uL (4.70-6.10); White Blood Cell (WBC) Count 16.8 thou/uL (4.8-10.8)
[2020-10-28 20:24] LABS: Anion Gap 21 mmol/L (10-20); BUN (Urea Nitrogen) 4 mg/dL (8.9-20.6); Calc. Creatinine Clearance 0 mL/min (70-130); Calcium 9.5 mg/dL (7.8-10.44); Carbon Dioxide 21 mmol/L (22-29); Chloride 106 mmol/L (98-107); Glucose 125 mg/dL (70-105); Lactic Acid 6.4 mmol/L (0.5-2.2); Potassium 4.1 mmol/L (3.5-5.1); Sodium 144 mmol/L (136-145)
[2020-10-28] MEDS ORDERED: TETANUS AND DIPHTHERIA TOX/PF 0.5 ML DISP.SYRIN IM ONE (21:00)
[2020-10-28 21:15] VITALS: BMI 34.6
[2020-10-28 21:18] LABS: SARS-CoV-2 NAA Rapid Test Not Detected (NotDetected)
[2020-10-28] MEDS: Morphine 2 MG/ML VIAL SLOW IVP PRN (21:36)
[2020-10-28] MEDS: Famotidine/PF 20 mg/2ml Vial SLOW IVP SCH (21:36)
[2020-10-28] MEDS: Sodium Chloride 0.9% 1,000 ML IV SCH (21:37)
[2020-10-28] MEDS: Propofol 1,000 MG/100 ML VIAL IV PRN (22:29)
[2020-10-28] MEDS: Lorazepam 2 MG/ML VIAL SLOW IVP PRN (22:36)
[2020-10-29] MEDS: Lorazepam 2 MG/ML VIAL SLOW IVP PRN ×2 (01:02→03:15)
[2020-10-29] MEDS: Propofol 1,000 MG/100 ML VIAL IV PRN ×3 (01:43→07:17)
[2020-10-29 04:24] LABS: #Lymphocytes 1.6 thou/uL (1.20-3.40); #Monocytes 0.7 thou/uL (0.11-0.59); #Neutrophils 11.1 thou/uL (1.40-6.50); %Basophils 0.2 % (0.0-1.0); %Eosinophils 0.1 % (0.0-10.0); %Lymphocytes 12.2 % (21.0-51.0); %Neutrophils 82.5 % (42.0-75.0); Hemoglobin 12.4 g/dL (14.0-18.0); Mean Corpuscular HGB CONC 34.6 g/dL (32.0-36.0); Mean Corpuscular Hemoglobin 32.2 pg (27.0-31.0); Mean Platelet Volume 7.1 fL (7.4-10.4); Platelet Count 172 thou/uL (130-400); RBC Distribution Width 15.5 % (11.5-14.5); Red Blood Cell (RBC) Count 3.85 mill/uL (4.70-6.10); White Blood Cell (WBC) Count 13.4 thou/uL (4.8-10.8)
[2020-10-29] MEDS: Morphine 2 MG/ML VIAL SLOW IVP PRN (04:26)
[2020-10-29 04:36] LABS: INR-International Normal Ratio 1.1; Prothrombin Time 14.5 sec (12.0-14.7)
[2020-10-29 04:37] LABS: PTT 25.6 sec (22.9-36.1)
[2020-10-29 04:42] LABS: Lactic Acid 2.1 mmol/L (0.5-2.2)
[2020-10-29] MEDS: Sodium Chloride 0.9% 1,000 ML IV SCH ×3 (04:46→17:30)
[2020-10-29 04:47] LABS: Anion Gap 13 mmol/L (10-20); BUN (Urea Nitrogen) 4 mg/dL (8.9-20.6); CK (CPK) 1312 U/L (30-200); Calc. Creatinine Clearance 168 mL/min (70-130); Calcium 8.6 mg/dL (7.8-10.44); Carbon Dioxide 27 mmol/L (22-29); Chloride 105 mmol/L (98-107); Glucose 118 mg/dL (70-105); Magnesium 1.2 mg/dL (1.6-2.6); Phosphorus 5.2 mg/dL (2.3-4.7); Potassium 4.3 mmol/L (3.5-5.1); Sodium 141 mmol/L (136-145)
[2020-10-29] MEDS ORDERED: Oxazepam 10 MG CAP PO SCH (06:00)
[2020-10-29 06:52] LABS: Actual Bicarbonate (HCO3a) 28.1 mEq/L (22-28); Base Excess (BEa) 2.7 mEq/L (-2.0 to +3.0); CO2 Tension 46.5 mmHg (35.0-45.0); Calcium, Ionized (arterial) 1.09 mmol/L (1.12-1.30); Carboxyhemoglobin (COHb) 0.5 gm% (0.0-3.0); O2 Tension (PaO2), arterial 100.2 mmHg (80.0-100.0); Potassium - ABG Lab 4.65 mmol/L (3.70-5.30)
[2020-10-29 06:58] LABS: Puncture Site ALINE
[2020-10-29 06:59] LABS: ALV-art Gradient 126.875 mmHg (0-20)
[2020-10-29] MEDS ORDERED: Haloperidol Lactate 5 MG/ML VIAL SLOW IVP PRN (07:06)
[2020-10-29] MEDS ORDERED: Calcium Chloride 1 GM/10 ML Abboject SYRINGE IVP SCH (07:15)
[2020-10-29] MEDS ORDERED: Fentanyl CADD 100 ML ONE (07:16)
[2020-10-29] MEDS ORDERED: Calcium Chloride 13.6 MEQ in Sodium Chloride 0.9% 100 ML IVPB SCH (07:30)
[2020-10-29] MEDS: Folic Acid 1 MG TAB PER TUBE SCH (08:49)
[2020-10-29] MEDS: Multivit, Therapeutic 1 TAB PO SCH (08:49)
[2020-10-29] MEDS: Thiamine 100 MG TAB PO SCH (08:49)
[2020-10-29] MEDS: Famotidine/PF 20 mg/2ml Vial SLOW IVP SCH ×2 (08:49→20:12)
[2020-10-29] MEDS ORDERED: Magnesium Sulfate 4 GM in Sodium Chloride 0.9% 250 ML 250 ML IVPB SCH (09:00)
[2020-10-29] MEDS ORDERED: Promethazine HCl 25 MG/ML VIAL IM PRN (11:11)
[2020-10-29] MEDS ORDERED: Naloxone HCl 0.4 mg/ml Vial IV PRN (11:11)
[2020-10-29] MEDS ORDERED: Ondansetron PF 4 MG/2 ML Vial IVP PRN (11:11)
[2020-10-29] MEDS ORDERED: diphenhydrAMINE 50 MG/ML VIAL IVP PRN (11:11)
[2020-10-29] MEDS ORDERED: diphenhydrAMINE 50 MG/ML VIAL IM PRN (11:11)
[2020-10-29] MEDS ORDERED: diphenhydrAMINE 25 MG CAP PO PRN (11:11)
[2020-10-29] MEDS ORDERED: Ketorolac Tromethamine 30 MG/ML VIAL IVP SCH (11:15)
[2020-10-29] MEDS ORDERED: Acetaminophen 325 MG TAB PO SCH ×2 (11:15→16:00)
[2020-10-29] MEDS ORDERED: Communication Order-Pharmacy FS SCH (11:15)
[2020-10-29] MEDS ORDERED: Sodium Chloride 0.9% 1,000 ML IV SCH ×2 (11:16→21:30)
[2020-10-29] MEDS: HYDROmorphone 10 mg/100 ml CADD IVPB PRN (13:28)
[2020-10-29] MEDS ORDERED: Guaifenesin DM 100-10/5 ML UDCUP PO PRN (16:54)
[2020-10-29] MEDS ORDERED: Polyethylene Glycol 3350 17 GM Packet PO PRN (16:55)
[2020-10-29] MEDS: Ketorolac Tromethamine 30 MG/ML VIAL IVP SCH ×2 (18:00→23:46)
[2020-10-29] MEDS: Acetaminophen 325 MG TAB PO SCH ×2 (18:02→23:45)
[2020-10-29] MEDS ORDERED: Aripiprazole 2 MG TAB PO SCH (21:00)
[2020-10-30] MEDS: Acetaminophen 325 MG TAB PO SCH (05:47)
[2020-10-30] MEDS: Ketorolac Tromethamine 30 MG/ML VIAL IVP SCH ×3 (05:47→18:26)
[2020-10-30 06:44] LABS: #Eosinphils 0.1 thou/uL (0.0-0.7); #Lymphocytes 1.4 thou/uL (1.20-3.40); #Monocytes 0.4 thou/uL (0.11-0.59); #Neutrophils 8.6 thou/uL (1.40-6.50); %Basophils 0.3 % (0.0-1.0); %Eosinophils 0.6 % (0.0-10.0); %Lymphocytes 13.5 % (21.0-51.0); %Monocytes 3.9 % (0.0-10.0); %Neutrophils 81.7 % (42.0-75.0); Hemoglobin 10.6 g/dL (14.0-18.0); Mean Corpuscular HGB CONC 33.7 g/dL (32.0-36.0); Mean Corpuscular Hemoglobin 31.9 pg (27.0-31.0); Mean Corpuscular Volume 94.6 fL (78.0-98.0); Mean Platelet Volume 7.1 fL (7.4-10.4); Platelet Count 109 thou/uL (130-400); Platelet Morphology Comment Appears Decreased; RBC Distribution Width 15.2 % (11.5-14.5); Red Blood Cell (RBC) Count 3.32 mill/uL (4.70-6.10); White Blood Cell (WBC) Count 10.6 thou/uL (4.8-10.8)
[2020-10-30 06:52] LABS: Anion Gap 8 mmol/L (10-20); BUN (Urea Nitrogen) 7 mg/dL (8.9-20.6); CK (CPK) 1217 U/L (30-200); Calc. Creatinine Clearance 216 mL/min (70-130); Carbon Dioxide 30 mmol/L (22-29); Chloride 100 mmol/L (98-107); Glucose 102 mg/dL (70-105); Magnesium 1.8 mg/dL (1.6-2.6); Phosphorus 2.8 mg/dL (2.3-4.7); Potassium 3.8 mmol/L (3.5-5.1); Sodium 134 mmol/L (136-145)
[2020-10-30] MEDS ORDERED: Potassium Phosphate 30 MMOL, Magnesium Sulfate 2 GM in Sodium Chloride 0.9% 250 ML 250 ML IVPB SCH (09:00)
[2020-10-30] MEDS ORDERED: Magnesium Sulfate 2 GM in Sodium Chloride 0.9% 100 ML IVPB SCH (09:00)
[2020-10-30] MEDS ORDERED: FLUoxetine HCl 20 MG CAP PO SCH (09:00)
[2020-10-30] MEDS: Thiamine 100 MG TAB PO SCH (09:12)
[2020-10-30] MEDS: Multivit, Therapeutic 1 TAB PO SCH (09:12)
[2020-10-30] MEDS: Folic Acid 1 MG TAB PER TUBE SCH (09:12)
[2020-10-30] MEDS: Famotidine/PF 20 mg/2ml Vial SLOW IVP SCH (09:20)
[2020-10-30] MEDS: Enoxaparin Sodium 30 MG/0.3 ML SYRINGE SC SCH ×2 (09:21→21:44)
[2020-10-30] MEDS: clonazePAM 1 MG TAB PO PRN (10:09)
[2020-10-30] MEDS: traMADol HCl 50 MG TAB PO SCH ×3 (10:09→21:43)
[2020-10-30] MEDS: Propranolol 40 MG TAB PO SCH (10:14)
[2020-10-30] MEDS: HYDROmorphone 10 mg/100 ml CADD IVPB PRN (13:07)
[2020-10-30] MEDS: Acetaminophen 500 MG TAB PO SCH ×2 (13:09→18:26)
[2020-10-30] MEDS: Sodium Chloride 0.9% 1,000 ML IV SCH (13:19)
[2020-10-30 15:14] LABS: Blood, Urine Large (Negative); pH, Urine 6.5 (5.0-9.0)
[2020-10-30 15:15] LABS: Clarity Turbid (Clear); Specific Gravity, Urine 1.036 (1.002-1.036)
[2020-10-30 15:16] LABS: Bilirubin Unable to Interpret (Negative); Glucose, Urine (Dipstick) Unable to Interpret mg/dL (Negative); Ketone, Urine Unable to Interpret mg/dL (Negative); Leukocyte Trace (Negative); Nitrite Unable to Interpret (Negative); Protein, Urine (Dipstick) Unable to Interpret mg/dL (Neg-Trace); Urobilinogen UNABLE TO INTERPRET mg/dL (Less than 2)
[2020-10-30 15:17] LABS: RBC/HPF Greater than 50 HPF (0-3)
[2020-10-30 15:19] LABS: Bacteria/HPF Rare-Few HPF (None Seen); Squamous Epithelial None Seen HPF (0-3)
[2020-10-30] MEDS ORDERED: Famotidine 20 MG TAB PO SCH (21:00)
[2020-10-31] MEDS: Ketorolac Tromethamine 30 MG/ML VIAL IVP SCH ×4 (00:24→11:38)
[2020-10-31] MEDS: Acetaminophen 500 MG TAB PO SCH ×5 (00:24→18:32)
[2020-10-31] MEDS: traMADol HCl 50 MG TAB PO PRN ×3 (01:41→21:40)
[2020-10-31] MEDS: traMADol HCl 50 MG TAB PO SCH ×4 (04:43→21:40)
[2020-10-31] MEDS: clonazePAM 1 MG TAB PO PRN (04:53)
[2020-10-31 05:42] LABS: #Eosinphils 0.2 thou/uL (0.0-0.7); #Lymphocytes 1.1 thou/uL (1.20-3.40); #Monocytes 0.4 thou/uL (0.11-0.59); #Neutrophils 10.1 thou/uL (1.40-6.50); %Eosinophils 1.6 % (0.0-10.0); %Lymphocytes 9.3 % (21.0-51.0); %Monocytes 3.4 % (0.0-10.0); %Neutrophils 85.7 % (42.0-75.0); Hemoglobin 11.3 g/dL (14.0-18.0); Mean Corpuscular HGB CONC 34.6 g/dL (32.0-36.0); Mean Corpuscular Hemoglobin 32.8 pg (27.0-31.0); Mean Corpuscular Volume 94.8 fL (78.0-98.0); Mean Platelet Volume 7.5 fL (7.4-10.4); Platelet Count 123 thou/uL (130-400); RBC Distribution Width 15.1 % (11.5-14.5); Red Blood Cell (RBC) Count 3.44 mill/uL (4.70-6.10); White Blood Cell (WBC) Count 11.8 thou/uL (4.8-10.8)
[2020-10-31 05:58] LABS: Anion Gap 13 mmol/L (10-20); BUN (Urea Nitrogen) 9 mg/dL (8.9-20.6); CK (CPK) 1777 U/L (30-200); Calc. Creatinine Clearance 216 mL/min (70-130); Calcium 8.5 mg/dL (7.8-10.44); Carbon Dioxide 25 mmol/L (22-29); Chloride 100 mmol/L (98-107); Glucose 82 mg/dL (70-105); Magnesium 2.1 mg/dL (1.6-2.6); Potassium 3.7 mmol/L (3.5-5.1); Sodium 134 mmol/L (136-145)
[2020-10-31] MEDS: Thiamine 100 MG TAB PO SCH (09:13)
[2020-10-31] MEDS: Multivit, Therapeutic 1 TAB PO SCH (09:13)
[2020-10-31] MEDS: Propranolol 40 MG TAB PO SCH (09:14)
[2020-10-31] MEDS: Aripiprazole 2 MG TAB PO SCH ×2 (09:14→21:41)
[2020-10-31] MEDS: Folic Acid 1 MG TAB PER TUBE SCH (09:14)
[2020-10-31] MEDS: Enoxaparin Sodium 30 MG/0.3 ML SYRINGE SC SCH ×2 (09:15→21:42)
[2020-10-31] MEDS: FLUoxetine HCl 20 MG CAP PO SCH (09:15)
[2020-10-31] MEDS: Sodium Chloride 0.9% 1,000 ML IV SCH (09:16)
[2020-10-31] MEDS: Ibuprofen 200 MG TAB PO SCH ×2 (14:36→21:39)
[2020-10-31] MEDS: Cyclobenzaprine 10 MG TAB PO PRN (21:41)
[2020-11-01] MEDS: Acetaminophen 500 MG TAB PO SCH ×4 (02:14→20:42)
[2020-11-01] MEDS: Sodium Chloride 0.9% 1,000 ML IV SCH ×2 (02:17→22:13)
[2020-11-01] MEDS: traMADol HCl 50 MG TAB PO SCH ×4 (05:04→21:11)
[2020-11-01] MEDS: Ibuprofen 200 MG TAB PO SCH ×3 (05:04→21:10)
[2020-11-01] MEDS: traMADol HCl 50 MG TAB PO PRN ×2 (05:04→21:11)
[2020-11-01 05:42] LABS: Anion Gap 11 mmol/L (10-20); BUN (Urea Nitrogen) 9 mg/dL (8.9-20.6); CK (CPK) 1022 U/L (30-200); Calc. Creatinine Clearance 240 mL/min (70-130); Calcium 8.3 mg/dL (7.8-10.44); Carbon Dioxide 22 mmol/L (22-29); Chloride 104 mmol/L (98-107); Glucose 116 mg/dL (70-105); Phosphorus 2.7 mg/dL (2.3-4.7); Potassium 3.3 mmol/L (3.5-5.1); Sodium 134 mmol/L (136-145)
[2020-11-01] MEDS: clonazePAM 1 MG TAB PO PRN ×2 (06:44→21:13)
[2020-11-01] MEDS: Propranolol 40 MG TAB PO SCH (08:53)
[2020-11-01] MEDS: Folic Acid 1 MG TAB PER TUBE SCH (08:55)
[2020-11-01] MEDS: Thiamine 100 MG TAB PO SCH (08:55)
[2020-11-01] MEDS: Multivit, Therapeutic 1 TAB PO SCH (08:55)
[2020-11-01] MEDS: Enoxaparin Sodium 30 MG/0.3 ML SYRINGE SC SCH ×2 (08:56→21:10)
[2020-11-01] MEDS: FLUoxetine HCl 20 MG CAP PO SCH (08:56)
[2020-11-01] MEDS: Aripiprazole 2 MG TAB PO SCH (08:56)
[2020-11-01] MEDS: Cyclobenzaprine 10 MG TAB PO PRN ×2 (14:53→21:10)
[2020-11-02] MEDS: Acetaminophen 500 MG TAB PO SCH ×2 (01:53→06:38)
[2020-11-02] MEDS: traMADol HCl 50 MG TAB PO SCH (04:40)
[2020-11-02] MEDS: traMADol HCl 50 MG TAB PO PRN (04:41)
[2020-11-02] MEDS: clonazePAM 1 MG TAB PO PRN (06:38)
[2020-11-02] MEDS: Ibuprofen 200 MG TAB PO SCH (06:38)
[2020-11-02] MEDS: Cyclobenzaprine 10 MG TAB PO PRN (06:38)
[2020-11-02] MEDS: Folic Acid 1 MG TAB PER TUBE SCH (09:22)
[2020-11-02] MEDS: Enoxaparin Sodium 30 MG/0.3 ML SYRINGE SC SCH ×2 (09:22→09:24)
[2020-11-02] MEDS: Thiamine 100 MG TAB PO SCH (09:22)
[2020-11-02] MEDS: FLUoxetine HCl 20 MG CAP PO SCH (09:22)
[2020-11-02] MEDS: Multivit, Therapeutic 1 TAB PO SCH (09:22)
[2020-11-02] MEDS: Aripiprazole 2 MG TAB PO SCH (09:23)
[2020-11-02 11:04] VITALS: BP 163/105; TEMP 97.5
[2020-11-02 15:42] LABS: SARS-CoV-2 NAA Rapid Test Not Detected (NotDetected)
[2020-11-04 14:40] LABS: Actual Bicarbonate (HCO3a) 17.3 mEq/L (22-28); Analyzer IN Cardio OR; CO2 Tension 48.2 mmHg (35.0-45.0); Hemoglobin (Hb) 12.8 g/dL (14.0-18.0); Potassium - ABG Lab 3.73 mmol/L (3.70-5.30)
[2020-11-04 14:41] LABS: pH, Arterial 7.17 (7.35-7.45)
[2020-11-04 14:42] LABS: O2 Tension (PaO2), arterial 59.9 mmHg (80.0-100.0); Puncture Site Arterial Line
== END 2020-11-02 16:00 | disposition home or self-care (01) | DRG 981 ==
LOC: ERS 15:50 → EEVIPCON 15:50 → SDC 16:28 → CCU 18:16 → SURG A 10-30 15:37
PROVIDERS: ADMIT Surgery; ATTEND Surgery
PROC: 5A1935Z Respiratory Ventilation, Less than 24 Consecutive Hours (ICD-10-PCS; principal; 2020-10-28)
PROC: 0BQF0ZZ Repair Right Lower Lung Lobe, Open Approach (ICD-10-PCS; 2020-10-28)
PROC: 30233L1 Transfusion of Nonautologous Fresh Plasma into Peripheral Vein, Percutaneous Approach (ICD-10-PCS; 2020-10-28)
PROC: 30233N1 Transfusion of Nonautologous Red Blood Cells into Peripheral Vein, Percutaneous Approach (ICD-10-PCS; 2020-10-28)
PROC: 30233R1 Transfusion of Nonautologous Platelets into Peripheral Vein, Percutaneous Approach (ICD-10-PCS; 2020-10-28)
PROC: 30233K1 Transfusion of Nonautologous Frozen Plasma into Peripheral Vein, Percutaneous Approach (ICD-10-PCS; 2020-10-28)
PROC: 0BH17EZ Insertion of Endotracheal Airway into Trachea, Via Natural or Artificial Opening (ICD-10-PCS; 2020-10-28)
PROC: 04HY32Z Insertion of Monitoring Device into Lower Artery, Percutaneous Approach (ICD-10-PCS; 2020-10-28)
PROC: 0W9B00Z Drainage of Left Pleural Cavity with Drainage Device, Open Approach (ICD-10-PCS; 2020-10-28)
PROC: 0W9900Z Drainage of Right Pleural Cavity with Drainage Device, Open Approach (ICD-10-PCS; 2020-10-28)
PROC: 02HV33Z Insertion of Infusion Device into Superior Vena Cava, Percutaneous Approach (ICD-10-PCS; 2020-10-28)
DX: S27.2XXA Traumatic hemopneumothorax, initial encounter (principal); T79.4XXA Traumatic shock, initial encounter; T79.6XXA Traumatic ischemia of muscle, initial encounter; J96.00 Acute respiratory failure, unspecified whether with hypoxia or hypercapnia; S27.321A Contusion of lung, unilateral, initial encounter; E87.2 Acidosis; S21.131A Puncture wound without foreign body of right front wall of thorax without penetration into thoracic cavity, initial encounter; J90 Pleural effusion, not elsewhere classified; D62 Acute posthemorrhagic anemia; Z20.822 Contact with and (suspected) exposure to COVID-19; E83.51 Hypocalcemia; S81.832A Puncture wound without foreign body, left lower leg, initial encounter; S41.031A Puncture wound without foreign body of right shoulder, initial encounter; E11.9 Type 2 diabetes mellitus without complications; I10 Essential (primary) hypertension; F25.9 Schizoaffective disorder, unspecified; F17.210 Nicotine dependence, cigarettes, uncomplicated; W34.00XA Accidental discharge from unspecified firearms or gun, initial encounter; R40.2353 Coma scale, best motor response, localizes pain, at hospital admission; R40.2133 Coma scale, eyes open, to sound, at hospital admission; R40.2233 Coma scale, best verbal response, inappropriate words, at hospital admission; E87.6 Hypokalemia; E83.42 Hypomagnesemia; E83.39 Other disorders of phosphorus metabolism; Z88.8 Allergy status to other drugs, medicaments and biological substances; Z79.899 Other long term (current) drug therapy; E66.01 Morbid (severe) obesity due to excess calories; Z68.34 Body mass index [BMI] 34.0-34.9, adult
CPT/HCPCS: 31500; 36415; 36416; 36430; 36556; 36620; 71045; 76770; 80048; 80053; 81003; 81015; 82550; 82805; 83605; 83735; 84100; 85025; 85610; 85730; 86850; 86900; 86901; 90471; 94002; 94003; 96374; 96375; G0390; J1630; J1644; J1650; J1885; J2060; J2270; J2370; J2704; J3010; J3475; J3490; J7050; J7620; P9016; P9035; P9048; P9059; S0028; U0002; U0005

== ENCOUNTER 2020-11-25 19:28 | Emergency (ER) | payer OTHER, SELFPAY ==
[2020-11-25] MEDS ORDERED: Ketorolac Tromethamine 30 MG/ML VIAL ONE (20:56)
[2020-11-25 21:00] LABS: #Basophils 0.1 thou/uL (0.0-0.2); #Eosinphils 0.1 thou/uL (0.0-0.7); #Lymphocytes 2.8 thou/uL (1.20-3.40); #Monocytes 0.7 thou/uL (0.11-0.59); #Neutrophils 5.8 thou/uL (1.40-6.50); %Basophils 0.8 % (0.0-1.0); %Eosinophils 0.6 % (0.0-10.0); %Lymphocytes 30.1 % (21.0-51.0); %Neutrophils 61.4 % (42.0-75.0); Hemoglobin 15.1 g/dL (14.0-18.0); Mean Corpuscular Hemoglobin 34.5 pg (27.0-31.0); Mean Corpuscular Volume 98.4 fL (78.0-98.0); Platelet Count 175 thou/uL (130-400); RBC Distribution Width 15.8 % (11.5-14.5); Red Blood Cell (RBC) Count 4.38 mill/uL (4.70-6.10); White Blood Cell (WBC) Count 9.4 thou/uL (4.8-10.8)
[2020-11-25] MEDS ORDERED: Acetaminophen 325 MG TAB ONE (21:40)
[2020-11-25 22:23] LABS: Albumin 3.9 g/dL (3.5-5.0)
[2020-11-25 22:24] LABS: Chloride 97 mmol/L (98-107); Sodium 140 mmol/L (136-145)
[2020-11-25 22:25] LABS: Calcium 8.3 mg/dL (7.8-10.44); Glucose 114 mg/dL (70-105)
[2020-11-25 22:26] LABS: Protein, Total 7.9 g/dL (6.0-8.3)
[2020-11-25 22:27] LABS: Anion Gap 20 mmol/L (10-20); Bilirubin, Total 0.9 mg/dL (0.2-1.2); Carbon Dioxide 26 mmol/L (22-29)
[2020-11-25 22:28] LABS: Alkaline Phosphatase 98 U/L (40-110)
[2020-11-25 22:29] LABS: Calc. Creatinine Clearance 0 mL/min (70-130)
[2020-11-25 22:30] LABS: AST (SGOT) 139 U/L (5-34); BUN (Urea Nitrogen) 4 mg/dL (8.9-20.6)
[2020-11-25 22:31] LABS: ALT (SGPT) 53 U/L (8-55); Potassium 2.7 mmol/L (3.5-5.1)
[2020-11-25] MEDS ORDERED: Potassium Chloride 20 MEQ TAB ONE ×2 (23:11→23:50)
[2020-11-25] MEDS ORDERED: Potassium Chloride 20 MEQ/100 ML PREMIX BAG ONE (23:19)
== END 2020-11-26 02:19 | disposition home or self-care (01) ==
LOC: ERS 19:28
DX: G89.12 Acute post-thoracotomy pain (principal); Z79.899 Other long term (current) drug therapy; E11.9 Type 2 diabetes mellitus without complications; I10 Essential (primary) hypertension; J45.909 Unspecified asthma, uncomplicated; Z87.891 Personal history of nicotine dependence
CPT/HCPCS: 36415; 71045; 80053; 84484; 85025; 93005; 96365; 96366; 96375; J1885; J3480

== ENCOUNTER 2020-12-12 01:58 | Emergency (ER) | payer SELFPAY ==
[2020-12-12] MEDS ORDERED: Acetaminophen 325 MG TAB ONE (02:47)
[2020-12-12] MEDS ORDERED: Ibuprofen 800 MG TAB ONE (02:47)
[2020-12-12] MEDS ORDERED: Lidocaine 1% w/Epinephrine 1:100K 20 ML VIAL ONE (03:49)
== END 2020-12-12 05:06 | disposition home or self-care (01) ==
LOC: ERS 01:58
DX: S01.111A Laceration without foreign body of right eyelid and periocular area, initial encounter (principal); S09.90XA Unspecified injury of head, initial encounter; H55.00 Unspecified nystagmus; I10 Essential (primary) hypertension; E11.9 Type 2 diabetes mellitus without complications; J45.909 Unspecified asthma, uncomplicated; W17.89XA Other fall from one level to another, initial encounter; Z87.891 Personal history of nicotine dependence; Z79.899 Other long term (current) drug therapy
CPT/HCPCS: 12011; 70450; 72125

== ENCOUNTER 2020-12-23 08:49 | Emergency (ER) | payer SELFPAY | END 2020-12-23 10:10 | disposition home or self-care (01) | LOC: ERS 08:49 | DX: S01.111D Laceration without foreign body of right eyelid and periocular area, subsequent encounter (principal); E11.9 Type 2 diabetes mellitus without complications; I10 Essential (primary) hypertension; J45.909 Unspecified asthma, uncomplicated; Z87.891 Personal history of nicotine dependence ==

== ENCOUNTER 2021-01-07 09:18 | Emergency (ER) | payer OTHER ==
[2021-01-07] MEDS ORDERED: Ibuprofen 800 MG TAB ONE (10:45)
== END 2021-01-07 10:46 | disposition home or self-care (01) ==
LOC: ERS 09:18
DX: S21.211D Laceration without foreign body of right back wall of thorax without penetration into thoracic cavity, subsequent encounter (principal); E11.9 Type 2 diabetes mellitus without complications; I10 Essential (primary) hypertension; Z87.891 Personal history of nicotine dependence; X58.XXXD Exposure to other specified factors, subsequent encounter

== ENCOUNTER 2021-01-14 20:38 | Emergency (ER) | payer OTHER ==
[~2021-01-14 20:38] MED LIST changes: +Iopamidol-370 76% 500 ML 1 ML ONE; -Rocuronium Bromide 10 MG/ML (10ML VIAL) ONE
[2021-01-14] MEDS ORDERED: Ketorolac Tromethamine 30 MG/ML VIAL ONE (21:34)
[2021-01-14] MEDS ORDERED: Morphine 4 MG/ML VIAL ONE ×2 (21:34→23:24)
[2021-01-14] MEDS ORDERED: Ondansetron PF 4 MG/2 ML Vial ONE (21:37)
[2021-01-14 21:52] LABS: #Basophils 0.1 thou/uL (0.0-0.2); #Eosinphils 0.2 thou/uL (0.0-0.7); #Lymphocytes 1.5 thou/uL (1.20-3.40); #Monocytes 0.5 thou/uL (0.11-0.59); #Neutrophils 7.8 thou/uL (1.40-6.50); %Basophils 0.8 % (0.0-1.0); %Eosinophils 1.8 % (0.0-10.0); %Monocytes 5.3 % (0.0-10.0); %Neutrophils 77.1 % (42.0-75.0); Hemoglobin 12.5 g/dL (14.0-18.0); Mean Corpuscular HGB CONC 32.6 g/dL (32.0-36.0); Mean Corpuscular Hemoglobin 33.5 pg (27.0-31.0); Mean Platelet Volume 6.4 fL (7.4-10.4); Platelet Count 265 thou/uL (130-400); RBC Distribution Width 14.8 % (11.5-14.5); Red Blood Cell (RBC) Count 3.72 mill/uL (4.70-6.10); White Blood Cell (WBC) Count 10.1 thou/uL (4.8-10.8)
[2021-01-14 22:08] LABS: ALT (SGPT) 35 U/L (8-55); AST (SGOT) 110 U/L (5-34); Albumin 3.5 g/dL (3.5-5.0); Alkaline Phosphatase 141 U/L (40-110); Anion Gap 16 mmol/L (10-20); BUN (Urea Nitrogen) Less than 4 mg/dL (8.9-20.6); Bilirubin, Total 0.4 mg/dL (0.2-1.2); CK (CPK) 104 U/L (30-200); Calc. Creatinine Clearance 0 mL/min (70-130); Calcium 8.2 mg/dL (7.8-10.44); Carbon Dioxide 23 mmol/L (22-29); Chloride 104 mmol/L (98-107); Globulin 3.6 g/dL (2.4-3.5); Glucose 165 mg/dL (70-105); Lipase 159 U/L (8-78); Magnesium 1.7 mg/dL (1.6-2.6); Protein, Total 7.1 g/dL (6.0-8.3); Sodium 140 mmol/L (136-145)
[2021-01-14 22:14] LABS: Potassium 2.9 mmol/L (3.5-5.1)
[2021-01-15] MEDS ORDERED: Promethazine HCl 25 MG/ML VIAL ONE (00:30)
[2021-01-15] MEDS ORDERED: Potassium Chloride 20 MEQ TAB ONE (05:23)
== END 2021-01-15 01:15 | disposition home or self-care (01) ==
LOC: ERS 20:38
DX: G89.18 Other acute postprocedural pain (principal); R07.89 Other chest pain; E11.9 Type 2 diabetes mellitus without complications; I10 Essential (primary) hypertension; J45.909 Unspecified asthma, uncomplicated
CPT/HCPCS: 36415; 71045; 71275; 80053; 82550; 83690; 83735; 84484; 85025; 85379; 93005; 96365; 96375; 96376; J1885; J2270; J2405; J2550; Q9967

== ENCOUNTER 2021-01-21 07:17 | Emergency (ER) | payer OTHER, SELFPAY | END 2021-01-21 07:50 | disposition home or self-care (01) | LOC: ERS 07:17 | DX: R42 Dizziness and giddiness (principal); R20.2 Paresthesia of skin; R53.1 Weakness; T43.595A Adverse effect of other antipsychotics and neuroleptics, initial encounter; I10 Essential (primary) hypertension; E11.9 Type 2 diabetes mellitus without complications; J45.909 Unspecified asthma, uncomplicated; Z87.891 Personal history of nicotine dependence | CPT/HCPCS: 99284 ==

== ENCOUNTER 2021-01-23 23:15 | Inpatient (IN) | payer OTHER, SELFPAY ==
[2021-01-23] MEDS ORDERED: Ondansetron PF 4 MG/2 ML Vial ONE ×2 (23:32→23:35)
[2021-01-23] MEDS ORDERED: Morphine 4 MG/ML VIAL ONE (23:34)
[2021-01-23] MEDS ORDERED: Pantoprazole 40 MG VIAL ONE (23:36)
[2021-01-23] MEDS ORDERED: Pantoprazole 80 MG in Sodium Chloride 0.9% 100 ML IVPB SCH (23:45)
[2021-01-23] MEDS ORDERED: Promethazine HCl 25 MG/ML VIAL ONE (23:58)
[2021-01-24 00:06] LABS: #Eosinphils 0.1 thou/uL (0.0-0.7); #Lymphocytes 2.1 thou/uL (1.20-3.40); #Monocytes 0.8 thou/uL (0.11-0.59); #Neutrophils 14.1 thou/uL (1.40-6.50); %Basophils 0.2 % (0.0-1.0); %Eosinophils 0.6 % (0.0-10.0); %Lymphocytes 12.3 % (21.0-51.0); %Monocytes 4.8 % (0.0-10.0); %Neutrophils 82.1 % (42.0-75.0); Hemoglobin 10.2 g/dL (14.0-18.0); Mean Corpuscular HGB CONC 35.7 g/dL (32.0-36.0); Mean Corpuscular Hemoglobin 36.2 pg (27.0-31.0); Mean Platelet Volume 6.4 fL (7.4-10.4); Platelet Count 236 thou/uL (130-400); RBC Distribution Width 13.8 % (11.5-14.5); Red Blood Cell (RBC) Count 2.83 mill/uL (4.70-6.10); White Blood Cell (WBC) Count 17.2 thou/uL (4.8-10.8)
[2021-01-24 00:36] LABS: ALT (SGPT) 24 U/L (8-55); AST (SGOT) 49 U/L (5-34); Albumin 3.5 g/dL (3.5-5.0); Alcohol 155 mg/dL (Less than 10); Alkaline Phosphatase 103 U/L (40-110); Anion Gap 21 mmol/L (10-20); BUN (Urea Nitrogen) 40 mg/dL (8.9-20.6); Bilirubin, Total 0.6 mg/dL (0.2-1.2); Calc. Creatinine Clearance 0 mL/min (70-130); Calcium 8.7 mg/dL (7.8-10.44); Carbon Dioxide 22 mmol/L (22-29); Chloride 101 mmol/L (98-107); Globulin 3.5 g/dL (2.4-3.5); Glucose 160 mg/dL (70-105); Lipase 39 U/L (8-78); Sodium 141 mmol/L (136-145)
[2021-01-24] MEDS ORDERED: Lorazepam 2 MG/ML VIAL ONE (00:42)
[2021-01-24 01:12] LABS: Potassium 2.7 mmol/L (3.5-5.1)
[2021-01-24] MEDS ORDERED: Potassium Chloride 20 MEQ/100 ML PREMIX BAG ONE (01:16)
[2021-01-24] MEDS ORDERED: Lorazepam 2 MG/ML VIAL IM PRN (01:17)
[2021-01-24] MEDS ORDERED: Acetaminophen 650 MG Suppository PR PRN (01:17)
[2021-01-24] MEDS ORDERED: Lorazepam 1 MG TAB PO PRN (01:17)
[2021-01-24] MEDS ORDERED: Ondansetron ODT 4 MG TAB PO PRN ×2 (01:17)
[2021-01-24] MEDS ORDERED: Electrolyte Replacement Protocol 1 EACH FS SCH (01:30)
[2021-01-24] MEDS ORDERED: Thiamine HCl 200 MG/2 ML VIAL SLOW IVP SCH (02:00)
[2021-01-24 02:08] LABS: Magnesium 1.5 mg/dL (1.6-2.6); Phosphorus 2.9 mg/dL (2.3-4.7)
[2021-01-24 02:59] VITALS: BMI 32.5
[2021-01-24] MEDS ORDERED: Magnesium 2 GM/50 ML 2 GM in Premix Bag 1 BAG IVPB SCH (03:00)
[2021-01-24] MEDS: Lorazepam 1 MG TAB PO SCH ×2 (03:18→08:44)
[2021-01-24] MEDS ORDERED: HumaLOG 300 UNITS/3 ML VIAL SC PRN ×2 (03:28)
[2021-01-24] MEDS ORDERED: Dextrose 50% Abboject 50 ML SYRINGE SLOW IVP PRN (03:28)
[2021-01-24] MEDS ORDERED: Dextrose 5% in Water 1,000 ML IV PRN (03:28)
[2021-01-24] MEDS ORDERED: Magnesium Sulfate 4 GM in Sodium Chloride 0.9% 250 ML 250 ML IVPB SCH (04:00)
[2021-01-24] MEDS: Ondansetron PF 4 MG/2 ML Vial IVP PRN ×3 (04:06→18:25)
[2021-01-24 04:36] LABS: #Eosinphils 0.1 thou/uL (0.0-0.7); #Lymphocytes 1.5 thou/uL (1.20-3.40); #Monocytes 0.7 thou/uL (0.11-0.59); #Neutrophils 14.7 thou/uL (1.40-6.50); %Basophils 0.1 % (0.0-1.0); %Eosinophils 0.5 % (0.0-10.0); %Lymphocytes 8.8 % (21.0-51.0); %Neutrophils 86.7 % (42.0-75.0); Mean Corpuscular HGB CONC 33.8 g/dL (32.0-36.0); Mean Corpuscular Hemoglobin 34.2 pg (27.0-31.0); Mean Platelet Volume 6.5 fL (7.4-10.4); Platelet Count 237 thou/uL (130-400); RBC Distribution Width 14.1 % (11.5-14.5); Red Blood Cell (RBC) Count 2.91 mill/uL (4.70-6.10); White Blood Cell (WBC) Count 16.9 thou/uL (4.8-10.8)
[2021-01-24 05:02] LABS: Anion Gap 20 mmol/L (10-20); BUN (Urea Nitrogen) 33 mg/dL (8.9-20.6); Calc. Creatinine Clearance 177 mL/min (70-130); Calcium 8.9 mg/dL (7.8-10.44); Carbon Dioxide 21 mmol/L (22-29); Chloride 101 mmol/L (98-107); Glucose 125 mg/dL (70-105); Potassium 3.3 mmol/L (3.5-5.1); Sodium 139 mmol/L (136-145)
[2021-01-24] MEDS: Acetaminophen 325 MG TAB PO PRN ×2 (05:08→21:22)
[2021-01-24] MEDS: Morphine 4 MG/ML VIAL SLOW IVP PRN ×5 (06:20→21:38)
[2021-01-24] MEDS: Potassium Chloride 20 MEQ in Premix Bag 1 BAG IVPB SCH ×3 (06:21→09:31)
[2021-01-24] MEDS: Sodium Chloride 0.9% 1,000 ML IV SCH ×3 (06:22→23:54)
[2021-01-24 08:10] LABS: Bacteria/HPF None Seen HPF (None Seen); Bilirubin Negative (Negative); Blood, Urine Negative (Negative); Clarity Clear (Clear); Glucose, Urine (Dipstick) Normal (Negative); Ketone, Urine 60 mg/dL (Negative); Leukocyte Negative Leu/uL (Negative); Nitrite Negative (Negative); Protein, Urine (Dipstick) 20 mg/dL (Neg-Trace); Specific Gravity, Urine 1.047 (1.002-1.036); Squamous Epithelial None Seen HPF (0-3); Urobilinogen Normal mg/dL (Less than 2); WBC/HPF 0-3 HPF (0-3)
[2021-01-24 08:12] LABS: Urine Culture Reflex No No
[2021-01-24 08:15] LABS: Magnesium 1.6 mg/dL (1.6-2.6)
[2021-01-24] MEDS: FLUoxetine HCl 20 MG/5 ML UDCUP PO SCH ×2 (08:44→21:22)
[2021-01-24] MEDS: Propranolol 40 MG TAB PO SCH (08:45)
[2021-01-24] MEDS: Multivitamins, Adult 10 ML, Folic Acid 1 MG, Thiamine HCl 100 MG in Dextrose 5 %-0.45 %... IV SCH ×2 (08:45→11:21)
[2021-01-24] MEDS ORDERED: Multivit, Therapeutic 1 TAB PO SCH (09:00)
[2021-01-24] MEDS ORDERED: Folic Acid 1 MG TAB PO SCH (09:00)
[2021-01-24] MEDS: Pantoprazole 80 MG, Admixture Fee 1 EACH in Sodium Chloride 0.9% 100 ML IVPB SCH ×2 (10:30→20:16)
[2021-01-24] MEDS: Lorazepam 2 MG/ML VIAL SLOW IVP PRN ×3 (11:17→21:45)
[2021-01-24 12:39] LABS: Hemoglobin 9.1 g/dL (14.0-18.0); Platelet Count 158 thou/uL (130-400)
[2021-01-24 16:27] LABS: SARS-CoV-2 PCR by NAA Not Detected (NotDetected)
[2021-01-25] MEDS: Morphine 4 MG/ML VIAL SLOW IVP PRN ×5 (01:41→20:06)
[2021-01-25] MEDS ORDERED: Benzonatate 100 MG CAP PO SCH (02:15)
[2021-01-25] MEDS: Sodium Chloride 0.9% 1,000 ML IV SCH ×2 (02:49→20:44)
[2021-01-25] MEDS: Pantoprazole 80 MG, Admixture Fee 1 EACH in Sodium Chloride 0.9% 100 ML IVPB SCH (03:40)
[2021-01-25] MEDS: Lorazepam 1 MG TAB PO PRN ×2 (03:51→17:50)
[2021-01-25] MEDS: Ondansetron PF 4 MG/2 ML Vial IVP PRN (05:46)
[2021-01-25] MEDS: guaiFENesin/DM ER PO PRN (06:39)
[2021-01-25 08:03] LABS: Hemoglobin 7.9 g/dL (14.0-18.0); Platelet Count 120 thou/uL (130-400)
[2021-01-25] MEDS: Propranolol 40 MG TAB PO SCH (08:06)
[2021-01-25] MEDS: FLUoxetine HCl 20 MG/5 ML UDCUP PO SCH ×2 (08:06→20:38)
[2021-01-25 08:14] LABS: Anion Gap 14 mmol/L (10-20); BUN (Urea Nitrogen) 10 mg/dL (8.9-20.6); Calc. Creatinine Clearance 216 mL/min (70-130); Carbon Dioxide 25 mmol/L (22-29); Chloride 104 mmol/L (98-107); Glucose 108 mg/dL (70-105); Sodium 140 mmol/L (136-145)
[2021-01-25] MEDS ORDERED: Potassium Chloride 20 MEQ TAB PO SCH (09:00)
[2021-01-25] MEDS ORDERED: Fentanyl 100 MCG/2 ML VIAL ONE (09:24)
[2021-01-25] MEDS ORDERED: Phenylephrine 10 MG/ML VIAL ONE (09:25)
[2021-01-25] MEDS ORDERED: Lidocaine 1% PF 5 ML VIAL ONE (09:35)
[2021-01-25] MEDS ORDERED: PROPOFOL 200 MG/20 ML VIAL ONE (09:35)
[2021-01-25] MEDS ORDERED: PHENYLEPHRINE-NS 100 MCG/ML 10 ML SYRINGE ONE (09:35)
[2021-01-25] MEDS ORDERED: Ketorolac Tromethamine 30 MG/ML VIAL IVP PRN (10:04)
[2021-01-25] MEDS ORDERED: Promethazine HCl 25 MG/ML VIAL IVPB PRN (10:04)
[2021-01-25] MEDS ORDERED: HYDROmorphone 2 MG/ML VIAL SLOW IVP PRN (10:04)
[2021-01-25] MEDS ORDERED: Promethazine HCl 25 MG/ML VIAL IM PRN (10:04)
[2021-01-25] MEDS ORDERED: Ondansetron HCl/PF 4 MG/2 ML Vial IVP PRN (10:04)
[2021-01-25] MEDS: Multivitamins, Adult 10 ML, Folic Acid 1 MG, Thiamine HCl 100 MG in Dextrose 5 %-0.45 %... IV SCH (11:12)
[2021-01-25] MEDS: Pantoprazole 40 MG VIAL IVP SCH (20:40)
[2021-01-25] MEDS: Acetaminophen 325 MG TAB PO PRN (22:22)
[2021-01-26] MEDS: Morphine 4 MG/ML VIAL SLOW IVP PRN ×3 (00:34→08:56)
[2021-01-26] MEDS ORDERED: Lorazepam 1 MG TAB PO PRN (01:18)
[2021-01-26] MEDS: Lorazepam 1 MG TAB PO SCH ×2 (01:47→07:46)
[2021-01-26] MEDS ORDERED: Lorazepam 0.5 MG TAB PO SCH (02:00)
[2021-01-26] MEDS: Sodium Chloride 0.9% 1,000 ML IV SCH (04:38)
[2021-01-26 06:08] LABS: #Eosinphils 0.2 thou/uL (0.0-0.7); #Lymphocytes 0.6 thou/uL (1.20-3.40); #Monocytes 0.2 thou/uL (0.11-0.59); %Basophils 0.5 % (0.0-1.0); %Eosinophils 3.6 % (0.0-10.0); %Lymphocytes 12.2 % (21.0-51.0); %Monocytes 3.2 % (0.0-10.0); %Neutrophils 80.4 % (42.0-75.0); Hemoglobin 7.5 g/dL (14.0-18.0); Mean Corpuscular HGB CONC 34.3 g/dL (32.0-36.0); Mean Corpuscular Hemoglobin 36.1 pg (27.0-31.0); Mean Platelet Volume 6.7 fL (7.4-10.4); Platelet Count 116 thou/uL (130-400); RBC Distribution Width 14.4 % (11.5-14.5); Red Blood Cell (RBC) Count 2.08 mill/uL (4.70-6.10); White Blood Cell (WBC) Count 4.9 thou/uL (4.8-10.8)
[2021-01-26] MEDS: guaiFENesin/DM ER PO PRN (07:46)
[2021-01-26] MEDS: FLUoxetine HCl 20 MG/5 ML UDCUP PO SCH (08:56)
[2021-01-26] MEDS: Propranolol 40 MG TAB PO SCH (08:56)
[2021-01-26 11:27] VITALS: BP 141/69; TEMP 99.3
[2021-01-26] MEDS: Multivitamins, Adult 10 ML, Folic Acid 1 MG, Thiamine HCl 100 MG in Dextrose 5 %-0.45 %... IV SCH (11:44)
[2021-01-26] MEDS: Pantoprazole 40 MG VIAL IVP SCH (12:28)
[2021-01-27] MEDS ORDERED: Lorazepam 0.5 MG TAB PO PRN (01:18)
[2021-01-27] MEDS ORDERED: Thiamine 100 MG TAB PO SCH (09:00)
[2021-01-27] MEDS ORDERED: FLU VACC QS2021-22(6MOS UP)/PF 60 MCG/0.5 ML SYRINGE IM ONE (09:00)
== END 2021-01-26 12:57 | disposition home or self-care (01) | DRG 378 ==
LOC: ERS 23:15 → 2NO 01-24 00:57 → ERHOLD 01-24 01:28 → 2NO 01-24 02:22 → SURG A 01-25 15:43
PROVIDERS: ADMIT Student in an Organized Health Care Education/Training Program; ATTEND Internal Medicine
PROC: 0W3P8ZZ Control Bleeding in Gastrointestinal Tract, Via Natural or Artificial Opening Endoscopic (ICD-10-PCS; principal; 2021-01-25)
PROC: 0DB68ZX Excision of Stomach, Via Natural or Artificial Opening Endoscopic, Diagnostic (ICD-10-PCS; 2021-01-25)
DX: K25.4 Chronic or unspecified gastric ulcer with hemorrhage (principal); D62 Acute posthemorrhagic anemia; K22.10 Ulcer of esophagus without bleeding; G89.29 Other chronic pain; E11.9 Type 2 diabetes mellitus without complications; I10 Essential (primary) hypertension; J45.909 Unspecified asthma, uncomplicated; F10.129 Alcohol abuse with intoxication, unspecified; E87.6 Hypokalemia; F43.10 Post-traumatic stress disorder, unspecified; E83.42 Hypomagnesemia; F41.1 Generalized anxiety disorder; F10.10 Alcohol abuse, uncomplicated; Z20.822 Contact with and (suspected) exposure to COVID-19; K26.4 Chronic or unspecified duodenal ulcer with hemorrhage; F32.A Depression, unspecified; F20.9 Schizophrenia, unspecified; Z88.8 Allergy status to other drugs, medicaments and biological substances; Z79.899 Other long term (current) drug therapy
CPT/HCPCS: 36415; 36416; 71045; 74177; 80048; 80053; 80307; 81001; 83690; 83735; 84100; 85014; 85018; 85025; 85049; 86850; 86900; 86901; 88305; 88312; 93005; C9113; J2060; J2270; J2370; J2405; J2550; J2704; J3010; J3411; J3475; J3480; J3490; J7042; J7050; Q0162; Q9967; U0003; U0005

== ENCOUNTER 2021-04-22 16:56 | Emergency (ER) | payer SELFPAY ==
[2021-04-22 18:41] LABS: Bilirubin Negative (Negative); Blood, Urine Negative (Negative); Clarity Clear (Clear); Glucose, Urine (Dipstick) Normal (Negative); Ketone, Urine Negative (Negative); Leukocyte Negative Leu/uL (Negative); Nitrite Negative (Negative); Protein, Urine (Dipstick) 10 mg/dL (Neg-Trace); Specific Gravity, Urine 1.009 (1.002-1.036); Urobilinogen Normal mg/dL (Less than 2)
[2021-04-22 18:49] LABS: #Eosinphils 0.1 thou/uL (0.0-0.7); #Lymphocytes 2.7 thou/uL (1.20-3.40); #Monocytes 0.4 thou/uL (0.11-0.59); #Neutrophils 5.4 thou/uL (1.40-6.50); %Basophils 0.5 % (0.0-1.0); %Eosinophils 0.7 % (0.0-10.0); %Lymphocytes 31.3 % (21.0-51.0); %Monocytes 4.8 % (0.0-10.0); %Neutrophils 62.7 % (42.0-75.0); Hemoglobin 10.3 g/dL (14.0-18.0); Mean Corpuscular HGB CONC 32.6 g/dL (32.0-36.0); Mean Corpuscular Hemoglobin 27.5 pg (27.0-31.0); Mean Corpuscular Volume 84.5 fL (78.0-98.0); Mean Platelet Volume 6.3 fL (7.4-10.4); Platelet Count 232 thou/uL (130-400); RBC Distribution Width 17.2 % (11.5-14.5); Red Blood Cell (RBC) Count 3.73 mill/uL (4.70-6.10); White Blood Cell (WBC) Count 8.6 thou/uL (4.8-10.8)
[2021-04-22 18:50] LABS: Amphetamine Not Detected (NotDetected); Barbiturates Screen Not Detected (NotDetected); Benzodiazepine Screen Not Detected (NotDetected); Cocaine Metabolite Screen Not Detected (NotDetected); Methadone Not Detected (NotDetected); Methamphetamine Not Detected (NotDetected); Opiate Screen Not Detected (NotDetected); Oxycodone Screen Not Detected (NotDetected); Phencyclidine (PCP) Not Detected (NotDetected); THC/Cannabinoid Screen Detected (NotDetected); Tricyclic Screen Not Detected (NotDetected)
[2021-04-22 19:11] LABS: ALT (SGPT) 12 U/L (8-55); AST (SGOT) 26 U/L (5-34); Acetaminophen Less than 6.0 mcg/mL (10.0-30.0); Albumin 3.6 g/dL (3.5-5.0); Alcohol 332 mg/dL (Less than 10); Alkaline Phosphatase 106 U/L (40-110); Anion Gap 13 mmol/L (10-20); BUN (Urea Nitrogen) 6 mg/dL (8.9-20.6); Bilirubin, Total 0.2 mg/dL (0.2-1.2); Calc. Creatinine Clearance 0 mL/min (70-130); Calcium 8.1 mg/dL (7.8-10.44); Carbon Dioxide 25 mmol/L (22-29); Chloride 106 mmol/L (98-107); Globulin 3.9 g/dL (2.4-3.5); Glucose 206 mg/dL (70-105); Potassium 3.2 mmol/L (3.5-5.1); Protein, Total 7.5 g/dL (6.0-8.3); Salicylate Less than 8.0 mg/dL (15.0-30.0); Sodium 141 mmol/L (136-145)
[2021-04-22] MEDS ORDERED: hydrOXYzine 25 MG TAB ONE (20:00)
[2021-04-22] MEDS ORDERED: Lorazepam 1 MG TAB ONE (21:15)
[2021-04-22 23:51] LABS: SARS-CoV-2 NAA Rapid Test Not Detected (NotDetected)
[2021-04-23] MEDS ORDERED: Haloperidol Lactate 5 MG/ML VIAL ONE (02:20)
[2021-04-23] MEDS ORDERED: traZODone HCl 50 MG TAB ONE (06:43)
[2021-04-23] MEDS ORDERED: hydrOXYzine 25 MG TAB ONE (10:22)
== END 2021-04-23 11:38 ==
LOC: ERS 16:56
DX: F10.129 Alcohol abuse with intoxication, unspecified (principal); F41.9 Anxiety disorder, unspecified; R45.851 Suicidal ideations; I10 Essential (primary) hypertension; E11.9 Type 2 diabetes mellitus without complications; J45.909 Unspecified asthma, uncomplicated; Y90.8 Blood alcohol level of 240 mg/100 ml or more; Z87.891 Personal history of nicotine dependence; Z20.822 Contact with and (suspected) exposure to COVID-19
CPT/HCPCS: 36415; 36416; 80053; 80306; 80307; 81003; 85025; 96372; 99285; J1630; U0002

== ENCOUNTER 2021-05-08 15:57 | Inpatient (IN) | payer OTHER, SELFPAY ==
[2021-05-08 16:35] LABS: #Lymphocytes 2.6 thou/uL (1.20-3.40); #Monocytes 0.4 thou/uL (0.11-0.59); #Neutrophils 10.3 thou/uL (1.40-6.50); %Basophils 0.2 % (0.0-1.0); %Eosinophils 0.3 % (0.0-10.0); %Lymphocytes 19.3 % (21.0-51.0); %Monocytes 2.9 % (0.0-10.0); %Neutrophils 77.3 % (42.0-75.0); Hemoglobin 11.7 g/dL (14.0-18.0); Mean Corpuscular Hemoglobin 26.7 pg (27.0-31.0); Mean Corpuscular Volume 83.4 fL (78.0-98.0); Mean Platelet Volume 6.6 fL (7.4-10.4); Platelet Count 435 thou/uL (130-400); RBC Distribution Width 17.8 % (11.5-14.5); Red Blood Cell (RBC) Count 4.39 mill/uL (4.70-6.10); White Blood Cell (WBC) Count 13.4 thou/uL (4.8-10.8)
[2021-05-08] MEDS ORDERED: Lorazepam 2 MG/ML VIAL ONE ×2 (16:51→20:50)
[2021-05-08 16:58] LABS: ALT (SGPT) 18 U/L (8-55); AST (SGOT) 32 U/L (5-34); Acetaminophen Less than 6.0 mcg/mL (10.0-30.0); Albumin 4.3 g/dL (3.5-5.0); Alcohol 293 mg/dL (Less than 10); Alkaline Phosphatase 89 U/L (40-110); Anion Gap 20 mmol/L (10-20); BUN (Urea Nitrogen) 10 mg/dL (8.9-20.6); Bilirubin, Total 0.3 mg/dL (0.2-1.2); Calc. Creatinine Clearance 0 mL/min (70-130); Calcium 8.9 mg/dL (7.8-10.44); Carbon Dioxide 17 mmol/L (22-29); Chloride 104 mmol/L (98-107); Globulin 4.3 g/dL (2.4-3.5); Glucose 114 mg/dL (70-105); Potassium 3.7 mmol/L (3.5-5.1); Protein, Total 8.6 g/dL (6.0-8.3); Salicylate Less than 8.0 mg/dL (15.0-30.0); Sodium 137 mmol/L (136-145)
[2021-05-08 17:28] LABS: Bacteria/HPF None Seen HPF (None Seen); Bilirubin Negative (Negative); Blood, Urine Negative (Negative); Clarity Clear (Clear); Glucose, Urine (Dipstick) Normal (Negative); Ketone, Urine 20 mg/dL (Negative); Leukocyte Negative Leu/uL (Negative); Nitrite Negative (Negative); Protein, Urine (Dipstick) 50 mg/dL (Neg-Trace); RBC/HPF 0-3 HPF (0-3); Specific Gravity, Urine 1.022 (1.002-1.036); Squamous Epithelial None Seen HPF (0-3); Urobilinogen Normal mg/dL (Less than 2); WBC/HPF 0-3 HPF (0-3)
[2021-05-08 17:35] LABS: Amphetamine Not Detected (NotDetected); Barbiturates Screen Not Detected (NotDetected); Benzodiazepine Screen Not Detected (NotDetected); Cocaine Metabolite Screen Not Detected (NotDetected); Methadone Not Detected (NotDetected); Methamphetamine Not Detected (NotDetected); Opiate Screen Not Detected (NotDetected); Oxycodone Screen Not Detected (NotDetected); Phencyclidine (PCP) Not Detected (NotDetected); THC/Cannabinoid Screen Not Detected (NotDetected); Tricyclic Screen Detected (NotDetected)
[2021-05-08 19:21] LABS: Lactic Acid 3.4 mmol/L (0.5-2.2)
[2021-05-08] MEDS ORDERED: Haloperidol Lactate 5 MG/ML VIAL ONE (20:06)
[2021-05-08] MEDS ORDERED: Lorazepam 1 MG TAB ONE ×2 (20:49→23:34)
[2021-05-08] MEDS ORDERED: chlordiazePOXIDE HCl 25 MG CAP PO SCH (21:15)
[2021-05-08] MEDS ORDERED: Sodium Chloride 0.9% 1,000 ML IV SCH (22:30)
[2021-05-08] MEDS ORDERED: Ondansetron ODT 4 MG TAB PO PRN (22:32)
[2021-05-08] MEDS ORDERED: Lorazepam 2 MG/ML VIAL IM PRN (22:32)
[2021-05-08] MEDS ORDERED: Thiamine HCl 200 MG/2 ML VIAL SLOW IVP SCH (22:45)
[2021-05-08] MEDS ORDERED: Lorazepam 1 MG TAB PO SCH (23:59)
[2021-05-09 00:08] LABS: SARS-CoV-2 NAA Rapid Test Not Detected (NotDetected)
[2021-05-09 00:26] LABS: Magnesium 1.6 mg/dL (1.6-2.6); Phosphorus 2.8 mg/dL (2.3-4.7)
[2021-05-09 01:27] VITALS: BMI 34.3
[2021-05-09] MEDS: Lactated Ringer's 1,000 ML IV SCH ×2 (01:28→09:21)
[2021-05-09] MEDS: Lorazepam 1 MG TAB PO PRN ×3 (01:30→11:21)
[2021-05-09] MEDS ORDERED: Magnesium Oxide 400 MG TAB PO SCH ×2 (02:15→06:15)
[2021-05-09] MEDS ORDERED: hydrOXYzine 25 MG TAB PO SCH ×2 (02:15→09:00)
[2021-05-09 04:51] LABS: Lactic Acid 0.7 mmol/L (0.5-2.2)
[2021-05-09 04:56] LABS: ALT (SGPT) 14 U/L (8-55); AST (SGOT) 25 U/L (5-34); Albumin 3.7 g/dL (3.5-5.0); Alkaline Phosphatase 70 U/L (40-110); Anion Gap 13 mmol/L (10-20); BUN (Urea Nitrogen) 10 mg/dL (8.9-20.6); Bilirubin, Total 0.5 mg/dL (0.2-1.2); Calc. Creatinine Clearance 241 mL/min (70-130); Calcium 8.2 mg/dL (7.8-10.44); Carbon Dioxide 22 mmol/L (22-29); Chloride 104 mmol/L (98-107); Globulin 3.2 g/dL (2.4-3.5); Glucose 90 mg/dL (70-105); Potassium 3.4 mmol/L (3.5-5.1); Protein, Total 6.9 g/dL (6.0-8.3); Sodium 136 mmol/L (136-145)
[2021-05-09] MEDS ORDERED: Lorazepam 2 MG/ML VIAL SLOW IVP PRN ×2 (04:56→11:20)
[2021-05-09] MEDS ORDERED: Potassium Chloride 20 MEQ TAB PO SCH (05:45)
[2021-05-09 06:21] LABS: #Lymphocytes 1.6 thou/uL (1.20-3.40); #Monocytes 0.5 thou/uL (0.11-0.59); #Neutrophils 8.4 thou/uL (1.40-6.50); %Basophils 0.1 % (0.0-1.0); %Eosinophils 0.3 % (0.0-10.0); %Monocytes 4.4 % (0.0-10.0); %Neutrophils 80.2 % (42.0-75.0); Anisocytosis SLIGHT = 6-15 cells (100X) (0-5/hpf); Hemoglobin 9.3 g/dL (14.0-18.0); MDiff Complete? YES; Mean Corpuscular HGB CONC 32.3 g/dL (32.0-36.0); Mean Corpuscular Hemoglobin 26.9 pg (27.0-31.0); Mean Corpuscular Volume 83.3 fL (78.0-98.0); Mean Platelet Volume 6.1 fL (7.4-10.4); Platelet Count 216 thou/uL (130-400); Platelet Morphology Comment Appears Decreased; RBC Distribution Width 17.2 % (11.5-14.5); Red Blood Cell (RBC) Count 3.45 mill/uL (4.70-6.10); White Blood Cell (WBC) Count 10.5 thou/uL (4.8-10.8)
[2021-05-09 06:51] LABS: Hemoglobin A1c 5.9 % (4.0-6.0)
[2021-05-09] MEDS ORDERED: Lorazepam 2 MG/ML VIAL SLOW IVP SCH (07:15)
[2021-05-09] MEDS ORDERED: Enoxaparin Sodium 40 MG/0.4 ML SYRINGE SC SCH (09:00)
[2021-05-09] MEDS ORDERED: Folic Acid 1 MG TAB PO SCH (09:00)
[2021-05-09] MEDS ORDERED: Multivit, Therapeutic 1 TAB PO SCH (09:00)
[2021-05-09] MEDS ORDERED: chlordiazePOXIDE HCl 25 MG CAP PO SCH (12:00)
[2021-05-09 14:34] VITALS: BP 130/83; TEMP 98.3
[2021-05-09] MEDS ORDERED: Lorazepam 1 MG TAB PO PRN (22:35)
[2021-05-10] MEDS ORDERED: Lorazepam 1 MG TAB PO PRN (22:35)
[2021-05-11] MEDS ORDERED: Lorazepam 0.5 MG TAB PO SCH (06:00)
[2021-05-11] MEDS ORDERED: Lorazepam 0.5 MG TAB PO PRN (22:35)
[2021-05-11] MEDS ORDERED: Thiamine 100 MG TAB PO SCH (22:45)
== END 2021-05-09 14:10 | disposition left against medical advice (07) | DRG 894 ==
LOC: ERS 15:57 → 2NO 22:01 → 2SW 05-09 07:55
PROVIDERS: ADMIT Family Medicine; ATTEND Family Medicine
DX: F10.239 Alcohol dependence with withdrawal, unspecified (principal); E87.2 Acidosis; R65.10 Systemic inflammatory response syndrome (SIRS) of non-infectious origin without acute organ dysfunction; E11.9 Type 2 diabetes mellitus without complications; I10 Essential (primary) hypertension; J45.909 Unspecified asthma, uncomplicated; F25.9 Schizoaffective disorder, unspecified; F17.210 Nicotine dependence, cigarettes, uncomplicated; F41.1 Generalized anxiety disorder; K29.20 Alcoholic gastritis without bleeding; D72.829 Elevated white blood cell count, unspecified; E87.6 Hypokalemia; E86.0 Dehydration; Z20.822 Contact with and (suspected) exposure to COVID-19; Z88.8 Allergy status to other drugs, medicaments and biological substances; Z79.899 Other long term (current) drug therapy
CPT/HCPCS: 36415; 71045; 71250; 80053; 80306; 80307; 81003; 81015; 82550; 82607; 82746; 83036; 83605; 83735; 84100; 84145; 84484; 85025; 87040; 93005; 96372; 96374; 96376; J1630; J1650; J2060; J3411; J7120; Q0162; U0002

== ENCOUNTER 2021-05-09 15:29 | Inpatient (IN) | payer OTHER, SELFPAY ==
[2021-05-09] MEDS ORDERED: Thiamine 100 MG TAB ONE (16:01)
[2021-05-09] MEDS ORDERED: Lorazepam 2 MG/ML VIAL ONE ×2 (16:01→18:48)
[2021-05-09] MEDS ORDERED: Haloperidol Lactate 5 MG/ML VIAL ONE (16:59)
[2021-05-09 17:01] LABS: Bilirubin Negative (Negative); Blood, Urine Negative (Negative); Clarity Clear (Clear); Glucose, Urine (Dipstick) Normal (Negative); Ketone, Urine Negative (Negative); Leukocyte Negative Leu/uL (Negative); Nitrite Negative (Negative); Protein, Urine (Dipstick) Negative (Neg-Trace); Specific Gravity, Urine 1.003 (1.002-1.036); Urobilinogen Normal mg/dL (Less than 2)
[2021-05-09 17:11] LABS: Amphetamine Not Detected (NotDetected); Barbiturates Screen Not Detected (NotDetected); Benzodiazepine Screen Detected (NotDetected); Cocaine Metabolite Screen Not Detected (NotDetected); Methadone Not Detected (NotDetected); Methamphetamine Not Detected (NotDetected); Opiate Screen Not Detected (NotDetected); Oxycodone Screen Not Detected (NotDetected); Phencyclidine (PCP) Not Detected (NotDetected); THC/Cannabinoid Screen Not Detected (NotDetected); Tricyclic Screen Not Detected (NotDetected)
[2021-05-09 17:21] LABS: ALT (SGPT) 18 U/L (8-55); AST (SGOT) 32 U/L (5-34); Albumin 4.4 g/dL (3.5-5.0); Alkaline Phosphatase 85 U/L (40-110); Anion Gap 21 mmol/L (10-20); BUN (Urea Nitrogen) 7 mg/dL (8.9-20.6); Bilirubin, Total 0.6 mg/dL (0.2-1.2); CK (CPK) 494 U/L (30-200); Calc. Creatinine Clearance 0 mL/min (70-130); Carbon Dioxide 17 mmol/L (22-29); Chloride 104 mmol/L (98-107); Globulin 3.7 g/dL (2.4-3.5); Glucose 88 mg/dL (70-105); Lipase 42 U/L (8-78); Potassium 3.9 mmol/L (3.5-5.1); Protein, Total 8.1 g/dL (6.0-8.3); Sodium 138 mmol/L (136-145)
[2021-05-09 17:25] LABS: #Basophils 0.1 thou/uL (0.0-0.2); #Lymphocytes 1.8 thou/uL (1.20-3.40); #Monocytes 0.8 thou/uL (0.11-0.59); #Neutrophils 10.5 thou/uL (1.40-6.50); %Basophils 0.5 % (0.0-1.0); %Eosinophils 0.1 % (0.0-10.0); %Lymphocytes 13.5 % (21.0-51.0); %Monocytes 5.9 % (0.0-10.0); %Neutrophils 80.1 % (42.0-75.0); Hemoglobin 10.7 g/dL (14.0-18.0); Mean Corpuscular HGB CONC 33.2 g/dL (32.0-36.0); Mean Corpuscular Hemoglobin 27.5 pg (27.0-31.0); Mean Corpuscular Volume 82.8 fL (78.0-98.0); Mean Platelet Volume 6.8 fL (7.4-10.4); Platelet Count 349 thou/uL (130-400); RBC Distribution Width 17.2 % (11.5-14.5); Red Blood Cell (RBC) Count 3.88 mill/uL (4.70-6.10); White Blood Cell (WBC) Count 13.1 thou/uL (4.8-10.8)
[2021-05-09 17:46] LABS: Acetaminophen Less than 6.0 mcg/mL (10.0-30.0); Alcohol 171 mg/dL (Less than 10); Salicylate Less than 8.0 mg/dL (15.0-30.0)
[2021-05-09] MEDS ORDERED: Ondansetron ODT 4 MG TAB PO PRN (19:09)
[2021-05-09] MEDS ORDERED: Lorazepam 2 MG/ML VIAL IM PRN (19:09)
[2021-05-09] MEDS ORDERED: Ondansetron PF 4 MG/2 ML Vial IVP PRN (19:13)
[2021-05-09] MEDS ORDERED: Electrolyte Replacement Protocol 1 EACH FS SCH (19:15)
[2021-05-09] MEDS ORDERED: Electrolyte Replacement Protocol FS PRN (19:45)
[2021-05-09 19:59] LABS: #Lymphocytes 1.6 thou/uL (1.20-3.40); #Monocytes 0.3 thou/uL (0.11-0.59); #Neutrophils 5.7 thou/uL (1.40-6.50); %Basophils 0.1 % (0.0-1.0); %Eosinophils 0.3 % (0.0-10.0); %Lymphocytes 20.5 % (21.0-51.0); %Neutrophils 75.1 % (42.0-75.0); Hemoglobin 9.3 g/dL (14.0-18.0); Mean Corpuscular HGB CONC 32.2 g/dL (32.0-36.0); Mean Corpuscular Hemoglobin 26.8 pg (27.0-31.0); Mean Corpuscular Volume 83.4 fL (78.0-98.0); Mean Platelet Volume 6.3 fL (7.4-10.4); Platelet Count 200 thou/uL (130-400); RBC Distribution Width 17.2 % (11.5-14.5); Red Blood Cell (RBC) Count 3.46 mill/uL (4.70-6.10); White Blood Cell (WBC) Count 7.6 thou/uL (4.8-10.8)
[2021-05-09] MEDS ORDERED: Folic Acid 1 MG TAB PO SCH (20:00)
[2021-05-09] MEDS ORDERED: Propranolol HCl 20 MG TAB PO SCH (20:00)
[2021-05-09] MEDS ORDERED: Multivit, Therapeutic 1 TAB PO SCH (20:00)
[2021-05-09] MEDS: Lactated Ringer's 1,000 ML IV SCH (20:01)
[2021-05-09] MEDS: Acetaminophen 325 MG TAB PO PRN (20:02)
[2021-05-09] MEDS: chlordiazePOXIDE HCl 25 MG CAP PO SCH ×2 (20:02→20:35)
[2021-05-09 20:16] LABS: ALT (SGPT) 14 U/L (8-55); AST (SGOT) 25 U/L (5-34); Albumin 3.6 g/dL (3.5-5.0); Alkaline Phosphatase 69 U/L (40-110); Anion Gap 16 mmol/L (10-20); BUN (Urea Nitrogen) 6 mg/dL (8.9-20.6); Bilirubin, Direct 0.2 mg/dL (0.1-0.3); Bilirubin, Total 0.4 mg/dL (0.2-1.2); Calc. Creatinine Clearance 0 mL/min (70-130); Calcium 7.9 mg/dL (7.8-10.44); Carbon Dioxide 16 mmol/L (22-29); Chloride 108 mmol/L (98-107); Globulin 3.3 g/dL (2.4-3.5); Glucose 108 mg/dL (70-105); Magnesium 1.6 mg/dL (1.6-2.6); Phosphorus 2.4 mg/dL (2.3-4.7); Potassium 3.4 mmol/L (3.5-5.1); Protein, Total 6.9 g/dL (6.0-8.3); Sodium 137 mmol/L (136-145)
[2021-05-09 20:48] VITALS: BMI 34.0
[2021-05-09] MEDS ORDERED: Lorazepam 2 MG/ML VIAL SLOW IVP PRN (20:49)
[2021-05-09] MEDS ORDERED: chlordiazePOXIDE HCl 25 MG CAP PO SCH ×3 (21:00→22:00)
[2021-05-09] MEDS ORDERED: Magnesium 2 GM/50 ML(in water) 2 GM in Premix Bag 1 BAG IVPB SCH (22:00)
[2021-05-09] MEDS ORDERED: Potassium Chloride 20 MEQ TAB PO SCH (22:00)
[2021-05-09] MEDS ORDERED: Potassium Bicarbonate/Cit Ac 20 MEQ TAB PO SCH (23:00)
[2021-05-10] MEDS: chlordiazePOXIDE HCl 25 MG CAP PO SCH ×4 (00:48→12:00)
[2021-05-10] MEDS: Lorazepam 1 MG TAB PO PRN ×4 (01:19→12:00)
[2021-05-10] MEDS: Lactated Ringer's 1,000 ML IV SCH ×2 (03:00→10:08)
[2021-05-10] MEDS ORDERED: Melatonin 3 MG TAB PO SCH (03:30)
[2021-05-10] MEDS: Acetaminophen 325 MG TAB PO PRN (03:39)
[2021-05-10] MEDS ORDERED: Potassium Chloride 20 MEQ TAB PO SCH (08:00)
[2021-05-10 08:01] VITALS: TEMP 98.5
[2021-05-10] MEDS ORDERED: Folic Acid 1 MG TAB PO SCH (09:00)
[2021-05-10] MEDS ORDERED: Multivit, Therapeutic 1 TAB PO SCH (09:00)
[2021-05-10] MEDS ORDERED: Propranolol HCl 20 MG TAB PO SCH (09:00)
[2021-05-10] MEDS ORDERED: Lansoprazole 3 MG/ML ORAL SUSPENSION PO SCH (09:00)
[2021-05-10] MEDS ORDERED: FLU VACC QS2021-22(6MOS UP)/PF 60 MCG/0.5 ML SYRINGE IM ONE (09:00)
[2021-05-10] MEDS ORDERED: Enoxaparin Sodium 40 MG/0.4 ML SYRINGE SC SCH (09:00)
[2021-05-10 10:30] LABS: #Eosinphils 0.1 thou/uL (0.0-0.7); #Monocytes 0.4 thou/uL (0.11-0.59); #Neutrophils 7.9 thou/uL (1.40-6.50); %Basophils 0.1 % (0.0-1.0); %Eosinophils 0.6 % (0.0-10.0); %Lymphocytes 10.9 % (21.0-51.0); %Neutrophils 84.4 % (42.0-75.0); Hemoglobin 9.9 g/dL (14.0-18.0); Mean Corpuscular Hemoglobin 26.6 pg (27.0-31.0); Mean Corpuscular Volume 83.3 fL (78.0-98.0); Mean Platelet Volume 6.5 fL (7.4-10.4); Platelet Count 221 thou/uL (130-400); RBC Distribution Width 17.1 % (11.5-14.5); White Blood Cell (WBC) Count 9.3 thou/uL (4.8-10.8)
[2021-05-10 10:56] LABS: ALT (SGPT) 15 U/L (8-55); AST (SGOT) 27 U/L (5-34); Albumin 3.8 g/dL (3.5-5.0); Alkaline Phosphatase 72 U/L (40-110); Anion Gap 14 mmol/L (10-20); BUN (Urea Nitrogen) 6 mg/dL (8.9-20.6); Bilirubin, Total 0.9 mg/dL (0.2-1.2); Calc. Creatinine Clearance 243 mL/min (70-130); Calcium 8.7 mg/dL (7.8-10.44); Carbon Dioxide 20 mmol/L (22-29); Chloride 105 mmol/L (98-107); Globulin 3.2 g/dL (2.4-3.5); Glucose 82 mg/dL (70-105); Potassium 3.8 mmol/L (3.5-5.1); Sodium 135 mmol/L (136-145)
[2021-05-10 12:20] VITALS: BP 161/94
[2021-05-10] MEDS ORDERED: Thiamine HCl 200 MG/2 ML VIAL SLOW IVP SCH (21:00)
[2021-05-12] MEDS ORDERED: Thiamine 100 MG TAB PO SCH (09:00)
== END 2021-05-10 13:45 | disposition left against medical advice (07) | DRG 894 ==
LOC: ERS 15:29 → 2SW 18:21 → OBSVTOIN 05-10 12:18
PROVIDERS: ADMIT Family Medicine; ATTEND Family Medicine
DX: F10.231 Alcohol dependence with withdrawal delirium (principal); I10 Essential (primary) hypertension; J45.909 Unspecified asthma, uncomplicated; F41.9 Anxiety disorder, unspecified; F25.9 Schizoaffective disorder, unspecified; F17.210 Nicotine dependence, cigarettes, uncomplicated; F41.1 Generalized anxiety disorder; R73.03 Prediabetes; Z88.8 Allergy status to other drugs, medicaments and biological substances; Z79.899 Other long term (current) drug therapy; Z98.890 Other specified postprocedural states
CPT/HCPCS: 36415; 80053; 80306; 80307; 81003; 82140; 82248; 82550; 83690; 83735; 84100; 84484; 85025; 93005; 96372; 96374; 96375; 96376; G0378; J1630; J1650; J2060; J3411; J3475; J7120

== ENCOUNTER 2021-05-10 14:46 | Emergency (ER) | payer OTHER, SELFPAY | END 2021-05-10 15:36 | disposition left against medical advice (07) | LOC: ERS 14:46 | DX: F10.239 Alcohol dependence with withdrawal, unspecified (principal) | CPT/HCPCS: 99284 ==

== ENCOUNTER 2021-05-10 20:53 | Emergency (ER) | payer OTHER, SELFPAY ==
[2021-05-10 21:29] LABS: #Eosinphils 0.1 thou/uL (0.0-0.7); #Lymphocytes 1.5 thou/uL (1.20-3.40); #Monocytes 0.5 thou/uL (0.11-0.59); #Neutrophils 6.6 thou/uL (1.40-6.50); %Basophils 0.3 % (0.0-1.0); %Eosinophils 0.9 % (0.0-10.0); %Lymphocytes 17.1 % (21.0-51.0); %Monocytes 5.6 % (0.0-10.0); %Neutrophils 76.1 % (42.0-75.0); Hemoglobin 9.8 g/dL (14.0-18.0); Mean Corpuscular HGB CONC 33.3 g/dL (32.0-36.0); Mean Corpuscular Hemoglobin 27.6 pg (27.0-31.0); Mean Platelet Volume 6.8 fL (7.4-10.4); Platelet Count 240 thou/uL (130-400); RBC Distribution Width 16.9 % (11.5-14.5); Red Blood Cell (RBC) Count 3.54 mill/uL (4.70-6.10); White Blood Cell (WBC) Count 8.6 thou/uL (4.8-10.8)
[2021-05-10 21:48] LABS: ALT (SGPT) 15 U/L (8-55); AST (SGOT) 29 U/L (5-34); Albumin 3.7 g/dL (3.5-5.0); Alcohol 28 mg/dL (Less than 10); Alkaline Phosphatase 73 U/L (40-110); Anion Gap 17 mmol/L (10-20); BUN (Urea Nitrogen) 7 mg/dL (8.9-20.6); Bilirubin, Total 0.6 mg/dL (0.2-1.2); Calc. Creatinine Clearance 0 mL/min (70-130); Calcium 8.6 mg/dL (7.8-10.44); Carbon Dioxide 19 mmol/L (22-29); Chloride 103 mmol/L (98-107); Globulin 3.6 g/dL (2.4-3.5); Glucose 80 mg/dL (70-105); Potassium 3.2 mmol/L (3.5-5.1); Protein, Total 7.3 g/dL (6.0-8.3); Sodium 136 mmol/L (136-145)
== END 2021-05-11 01:25 | disposition home or self-care (01) ==
LOC: ERS 20:53
DX: M79.10 Myalgia, unspecified site (principal); F17.210 Nicotine dependence, cigarettes, uncomplicated
CPT/HCPCS: 36415; 70450; 80307; 83930

== ENCOUNTER 2021-05-13 08:44 | Emergency (ER) | payer OTHER, SELFPAY ==
[2021-05-13] MEDS ORDERED: Lorazepam 2 MG/ML VIAL ONE ×2 (08:55→10:08)
[2021-05-13] MEDS ORDERED: Ketorolac Tromethamine 30 MG/ML VIAL ONE (09:09)
[2021-05-13 09:22] LABS: #Eosinphils 0.2 thou/uL (0.0-0.7); #Lymphocytes 1.2 thou/uL (1.20-3.40); #Monocytes 0.4 thou/uL (0.11-0.59); #Neutrophils 5.4 thou/uL (1.40-6.50); %Basophils 0.1 % (0.0-1.0); %Eosinophils 2.4 % (0.0-10.0); %Lymphocytes 16.6 % (21.0-51.0); %Monocytes 5.9 % (0.0-10.0); %Neutrophils 74.9 % (42.0-75.0); Hemoglobin 10.4 g/dL (14.0-18.0); Mean Corpuscular HGB CONC 33.1 g/dL (32.0-36.0); Mean Corpuscular Volume 84.6 fL (78.0-98.0); Mean Platelet Volume 6.7 fL (7.4-10.4); Platelet Count 241 thou/uL (130-400); RBC Distribution Width 17.5 % (11.5-14.5); Red Blood Cell (RBC) Count 3.71 mill/uL (4.70-6.10); White Blood Cell (WBC) Count 7.2 thou/uL (4.8-10.8)
[2021-05-13] MEDS ORDERED: chlordiazePOXIDE HCl 25 MG CAP PO SCH (09:30)
[2021-05-13] MEDS ORDERED: Thiamine HCl 200 MG/2 ML VIAL SLOW IVP SCH (09:30)
[2021-05-13 09:45] LABS: Alcohol 12 mg/dL (Less than 10); Salicylate Less than 8.0 mg/dL (15.0-30.0)
[2021-05-13 09:46] LABS: ALT (SGPT) 55 U/L (8-55); AST (SGOT) 182 U/L (5-34); Albumin 4.1 g/dL (3.5-5.0); Alkaline Phosphatase 76 U/L (40-110); Anion Gap 18 mmol/L (10-20); BUN (Urea Nitrogen) 11 mg/dL (8.9-20.6); Bilirubin, Total 0.4 mg/dL (0.2-1.2); Calc. Creatinine Clearance 0 mL/min (70-130); Calcium 9.1 mg/dL (7.8-10.44); Carbon Dioxide 16 mmol/L (22-29); Chloride 105 mmol/L (98-107); Globulin 3.7 g/dL (2.4-3.5); Glucose 87 mg/dL (70-105); Potassium 3.3 mmol/L (3.5-5.1); Protein, Total 7.8 g/dL (6.0-8.3); Sodium 136 mmol/L (136-145)
[2021-05-13] MEDS ORDERED: Folic Acid 1 MG, Multivitamins, Adult 10 ML in Dextrose 5 %-0.45 % NaCl 1,000 ML IV SCH (10:00)
[2021-05-13 11:39] LABS: Bilirubin Negative (Negative); Blood, Urine Negative (Negative); Clarity Clear (Clear); Glucose, Urine (Dipstick) Normal (Negative); Ketone, Urine 60 mg/dL (Negative); Leukocyte Negative Leu/uL (Negative); Nitrite Negative (Negative); Protein, Urine (Dipstick) 20 mg/dL (Neg-Trace); Specific Gravity, Urine 1.026 (1.002-1.036); Urobilinogen Normal mg/dL (Less than 2); pH, Urine 5.5 (5.0-9.0)
[2021-05-13 11:50] LABS: Amphetamine Not Detected (NotDetected); Barbiturates Screen Not Detected (NotDetected); Benzodiazepine Screen Detected (NotDetected); Cocaine Metabolite Screen Not Detected (NotDetected); Methadone Not Detected (NotDetected); Methamphetamine Not Detected (NotDetected); Opiate Screen Not Detected (NotDetected); Oxycodone Screen Not Detected (NotDetected); Phencyclidine (PCP) Not Detected (NotDetected); THC/Cannabinoid Screen Not Detected (NotDetected); Tricyclic Screen Not Detected (NotDetected)
== END 2021-05-13 13:17 | disposition left against medical advice (07) ==
LOC: ERS 08:44
DX: F10.239 Alcohol dependence with withdrawal, unspecified (principal); I10 Essential (primary) hypertension; F17.210 Nicotine dependence, cigarettes, uncomplicated; Y90.1 Blood alcohol level of 20-39 mg/100 ml
CPT/HCPCS: 80053; 80306; 80307; 81003; 83735; 85025; 93005; 96374; 96375; 96376; J1885; J2060; J3411; J7042

== ENCOUNTER 2021-05-13 18:04 | Emergency (ER) | payer OTHER, SELFPAY | END 2021-05-13 22:48 | disposition left against medical advice (07) | LOC: ERS 18:04 | DX: Z53.21 Procedure and treatment not carried out due to patient leaving prior to being seen by health care provider (principal) ==

== ENCOUNTER 2021-05-13 21:28 | Inpatient (IN) | payer OTHER, SELFPAY ==
[2021-05-13] MEDS ORDERED: Lorazepam 2 MG/ML VIAL ONE (22:47)
[2021-05-13] MEDS ORDERED: Thiamine 100 MG TAB ONE (22:47)
[2021-05-13 22:55] LABS: #Basophils 0.1 thou/uL (0.0-0.2); #Eosinphils 0.2 thou/uL (0.0-0.7); #Lymphocytes 1.6 thou/uL (1.20-3.40); #Monocytes 0.7 thou/uL (0.11-0.59); #Neutrophils 7.2 thou/uL (1.40-6.50); %Basophils 0.8 % (0.0-1.0); %Eosinophils 2.1 % (0.0-10.0); %Lymphocytes 16.5 % (21.0-51.0); %Monocytes 6.7 % (0.0-10.0); Hemoglobin 9.8 g/dL (14.0-18.0); Mean Corpuscular HGB CONC 32.8 g/dL (32.0-36.0); Mean Corpuscular Hemoglobin 27.7 pg (27.0-31.0); Mean Corpuscular Volume 84.5 fL (78.0-98.0); Mean Platelet Volume 6.4 fL (7.4-10.4); Platelet Count 245 thou/uL (130-400); RBC Distribution Width 17.7 % (11.5-14.5); Red Blood Cell (RBC) Count 3.54 mill/uL (4.70-6.10); White Blood Cell (WBC) Count 9.8 thou/uL (4.8-10.8)
[2021-05-13] MEDS ORDERED: Thiamine HCl 200 MG/2 ML VIAL SLOW IVP SCH (23:00)
[2021-05-13 23:16] LABS: ALT (SGPT) 55 U/L (8-55); AST (SGOT) 169 U/L (5-34); Acetaminophen Less than 6.0 mcg/mL (10.0-30.0); Alcohol 81 mg/dL (Less than 10); Alkaline Phosphatase 72 U/L (40-110); Anion Gap 18 mmol/L (10-20); BUN (Urea Nitrogen) 7 mg/dL (8.9-20.6); Bilirubin, Total 0.3 mg/dL (0.2-1.2); Calc. Creatinine Clearance 0 mL/min (70-130); Calcium 8.6 mg/dL (7.8-10.44); Carbon Dioxide 15 mmol/L (22-29); Chloride 106 mmol/L (98-107); Globulin 3.3 g/dL (2.4-3.5); Glucose 76 mg/dL (70-105); Potassium 3.2 mmol/L (3.5-5.1); Protein, Total 7.3 g/dL (6.0-8.3); Salicylate Less than 8.0 mg/dL (15.0-30.0); Sodium 136 mmol/L (136-145)
[2021-05-14] MEDS ORDERED: Lorazepam 2 MG/ML VIAL IM PRN (00:20)
[2021-05-14] MEDS ORDERED: Ondansetron ODT 4 MG TAB PO PRN (00:20)
[2021-05-14] MEDS ORDERED: Lorazepam 1 MG TAB PO SCH (00:30)
[2021-05-14] MEDS ORDERED: Electrolyte Replacement Protocol 1 EACH FS SCH (00:30)
[2021-05-14 00:56] LABS: Magnesium 1.8 mg/dL (1.6-2.6); Phosphorus 2.8 mg/dL (2.3-4.7)
[2021-05-14] MEDS ORDERED: Potassium Chloride 20 MEQ TAB PO SCH (02:15)
[2021-05-14] MEDS ORDERED: Magnesium 2 GM/50 ML(in water) 2 GM in Premix Bag 1 BAG IVPB SCH (02:30)
[2021-05-14] MEDS ORDERED: Magnesium 2 GM/50 ML BAG (IN WATER) ONE (02:53)
[2021-05-14] MEDS ORDERED: Potassium Chloride 20 MEQ TAB ONE (02:53)
[2021-05-14] MEDS ORDERED: Lorazepam 2 MG/ML VIAL ONE (04:00)
[2021-05-14] MEDS ORDERED: Lorazepam 1 MG TAB ONE ×3 (04:25→13:29)
[2021-05-14] MEDS: Lorazepam 1 MG TAB PO PRN ×3 (04:28→13:37)
[2021-05-14] MEDS ORDERED: Ondansetron ODT 4 MG TAB ONE (04:30)
[2021-05-14] MEDS ORDERED: Potassium Chloride 20 MEQ in Premix Bag 1 BAG IVPB SCH (04:30)
[2021-05-14 04:58] LABS: #Eosinphils 0.2 thou/uL (0.0-0.7); #Lymphocytes 1.2 thou/uL (1.20-3.40); #Monocytes 0.6 thou/uL (0.11-0.59); #Neutrophils 5.5 thou/uL (1.40-6.50); %Basophils 0.6 % (0.0-1.0); %Eosinophils 3.1 % (0.0-10.0); %Lymphocytes 15.8 % (21.0-51.0); %Monocytes 7.8 % (0.0-10.0); %Neutrophils 72.7 % (42.0-75.0); Hemoglobin 9.5 g/dL (14.0-18.0); Mean Corpuscular Hemoglobin 27.1 pg (27.0-31.0); Mean Corpuscular Volume 84.6 fL (78.0-98.0); Mean Platelet Volume 6.9 fL (7.4-10.4); Platelet Count 228 thou/uL (130-400); RBC Distribution Width 17.7 % (11.5-14.5); White Blood Cell (WBC) Count 7.6 thou/uL (4.8-10.8)
[2021-05-14] MEDS ORDERED: Acetaminophen 325 MG TAB PO SCH (05:00)
[2021-05-14 05:16] LABS: ALT (SGPT) 55 U/L (8-55); AST (SGOT) 155 U/L (5-34); Albumin 3.8 g/dL (3.5-5.0); Alkaline Phosphatase 66 U/L (40-110); Anion Gap 17 mmol/L (10-20); BUN (Urea Nitrogen) 6 mg/dL (8.9-20.6); Bilirubin, Total 0.3 mg/dL (0.2-1.2); Calc. Creatinine Clearance 0 mL/min (70-130); Calcium 8.8 mg/dL (7.8-10.44); Carbon Dioxide 16 mmol/L (22-29); Chloride 106 mmol/L (98-107); Globulin 3.6 g/dL (2.4-3.5); Glucose 75 mg/dL (70-105); Protein, Total 7.4 g/dL (6.0-8.3); Sodium 136 mmol/L (136-145)
[2021-05-14] MEDS ORDERED: Folic Acid 1 MG TAB ONE (08:07)
[2021-05-14] MEDS ORDERED: Acetaminophen 325 MG TAB ONE (08:07)
[2021-05-14] MEDS ORDERED: Potassium Chloride 20 MEQ/100 ML PREMIX BAG ONE ×2 (08:08→08:09)
[2021-05-14] MEDS: chlordiazePOXIDE HCl 25 MG CAP PO SCH ×2 (08:57→11:51)
[2021-05-14] MEDS ORDERED: Multivit, Therapeutic 1 TAB PO SCH (09:00)
[2021-05-14] MEDS ORDERED: Enoxaparin Sodium 40 MG/0.4 ML SYRINGE SC SCH (09:00)
[2021-05-14] MEDS ORDERED: Folic Acid 1 MG TAB PO SCH (09:00)
[2021-05-14] MEDS ORDERED: Propranolol HCl 20 MG TAB PO SCH (09:00)
[2021-05-14] MEDS ORDERED: Thiamine HCl 200 MG/2 ML VIAL SLOW IVP SCH (21:00)
[2021-05-15] MEDS ORDERED: Lorazepam 1 MG TAB PO PRN (00:21)
[2021-05-16] MEDS ORDERED: Lorazepam 1 MG TAB PO PRN (00:21)
[2021-05-16] MEDS ORDERED: Lorazepam 0.5 MG TAB PO SCH (00:30)
[2021-05-16] MEDS ORDERED: Thiamine 100 MG TAB PO SCH (21:00)
[2021-05-17] MEDS ORDERED: Lorazepam 0.5 MG TAB PO PRN (00:21)
== END 2021-05-14 14:32 | disposition home or self-care (01) | DRG 897 ==
LOC: ERS 21:28 → ERHOLD 23:13
PROVIDERS: ADMIT Student in an Organized Health Care Education/Training Program; ATTEND Student in an Organized Health Care Education/Training Program
DX: F10.239 Alcohol dependence with withdrawal, unspecified (principal); Z20.822 Contact with and (suspected) exposure to COVID-19; I10 Essential (primary) hypertension; F32.A Depression, unspecified; F25.9 Schizoaffective disorder, unspecified; F17.210 Nicotine dependence, cigarettes, uncomplicated; F41.1 Generalized anxiety disorder; E87.6 Hypokalemia; E83.42 Hypomagnesemia; Z88.8 Allergy status to other drugs, medicaments and biological substances; Z79.899 Other long term (current) drug therapy
CPT/HCPCS: 36415; 80053; 80307; 83735; 84100; 85025; 93005; 96374; 96375; 96376; J2060; J3411; J3475; J3480; Q0162

== ENCOUNTER 2021-10-12 10:26 | Emergency (ER) | payer OTHER ==
[2021-10-12 11:12] LABS: #Eosinphils 0.1 thou/uL (0.0-0.7); #Monocytes 0.5 thou/uL (0.11-0.59); #Neutrophils 4.3 thou/uL (1.40-6.50); %Basophils 0.1 % (0.0-1.0); %Eosinophils 0.7 % (0.0-10.0); %Monocytes 7.3 % (0.0-10.0); %Neutrophils 62.8 % (42.0-75.0); Hemoglobin 12.5 g/dL (14.0-18.0); Mean Corpuscular HGB CONC 32.3 g/dL (32.0-36.0); Mean Corpuscular Hemoglobin 26.5 pg (27.0-31.0); Mean Platelet Volume 7.8 fL (7.4-10.4); Platelet Count 201 thou/uL (130-400); RBC Distribution Width 17.4 % (11.5-14.5); White Blood Cell (WBC) Count 6.9 thou/uL (4.8-10.8)
[2021-10-12 11:31] LABS: ALT (SGPT) 12 U/L (8-55); AST (SGOT) 14 U/L (5-34); Albumin 3.9 g/dL (3.5-5.0); Alkaline Phosphatase 91 U/L (40-110); Anion Gap 13 mmol/L (10-20); BUN (Urea Nitrogen) 6 mg/dL (8.9-20.6); Bilirubin, Total 0.3 mg/dL (0.2-1.2); CK (CPK) 117 U/L (30-200); Calc. Creatinine Clearance 0 mL/min (70-130); Calcium 8.7 mg/dL (7.8-10.44); Carbon Dioxide 24 mmol/L (22-29); Chloride 105 mmol/L (98-107); Estimated GFR 124; Globulin 3.8 g/dL (2.4-3.5); Glucose 132 mg/dL (70-105); Potassium 3.3 mmol/L (3.5-5.1); Protein, Total 7.7 g/dL (6.0-8.3); Sodium 139 mmol/L (136-145)
[2021-10-12] MEDS ORDERED: Potassium Chloride 20 MEQ TAB ONE (11:48)
== END 2021-10-12 11:52 | disposition home or self-care (01) ==
LOC: ERS 10:26
DX: E87.6 Hypokalemia (principal); R53.1 Weakness; I10 Essential (primary) hypertension
CPT/HCPCS: 36415; 71045; 80053; 82550; 84484; 85025; 93005; 94760

== ENCOUNTER 2021-10-28 15:59 | Emergency (ER) | payer SELFPAY | END 2021-10-28 16:57 | disposition left against medical advice (07) | LOC: ERS 15:59 | DX: Z53.21 Procedure and treatment not carried out due to patient leaving prior to being seen by health care provider (principal) ==

== ENCOUNTER 2021-10-31 12:40 | Emergency (ER) | payer SELFPAY ==
[2021-10-31 13:40] LABS: #Eosinphils 0.1 thou/uL (0.0-0.7); #Monocytes 0.8 thou/uL (0.11-0.59); #Neutrophils 6.3 thou/uL (1.40-6.50); %Basophils 0.1 % (0.0-1.0); %Eosinophils 0.9 % (0.0-10.0); %Lymphocytes 21.6 % (21.0-51.0); %Monocytes 8.6 % (0.0-10.0); %Neutrophils 68.8 % (42.0-75.0); Hemoglobin 13.6 g/dL (14.0-18.0); Mean Corpuscular HGB CONC 33.6 g/dL (32.0-36.0); Mean Corpuscular Hemoglobin 27.9 pg (27.0-31.0); Mean Corpuscular Volume 83.3 fL (78.0-98.0); Mean Platelet Volume 7.2 fL (7.4-10.4); Platelet Count 190 thou/uL (130-400); RBC Distribution Width 17.1 % (11.5-14.5); Red Blood Cell (RBC) Count 4.86 mill/uL (4.70-6.10); White Blood Cell (WBC) Count 9.2 thou/uL (4.8-10.8)
[2021-10-31 14:00] LABS: ALT (SGPT) 17 U/L (8-55); AST (SGOT) 32 U/L (5-34); Albumin 4.2 g/dL (3.5-5.0); Alkaline Phosphatase 86 U/L (40-110); Anion Gap 18 mmol/L (10-20); BUN (Urea Nitrogen) 7 mg/dL (8.9-20.6); Bilirubin, Total 0.8 mg/dL (0.2-1.2); Calc. Creatinine Clearance 0 mL/min (70-130); Calcium 8.8 mg/dL (7.8-10.44); Carbon Dioxide 20 mmol/L (22-29); Chloride 100 mmol/L (98-107); Estimated GFR 118; Globulin 3.8 g/dL (2.4-3.5); Glucose 128 mg/dL (70-105); Potassium 3.5 mmol/L (3.5-5.1); Sodium 134 mmol/L (136-145)
== END 2021-10-31 15:25 | disposition home or self-care (01) ==
LOC: ERS 12:40
DX: K62.5 Hemorrhage of anus and rectum (principal); I10 Essential (primary) hypertension; Z79.899 Other long term (current) drug therapy
CPT/HCPCS: 36415; 80053; 85025; 99283

== ENCOUNTER 2021-12-06 03:02 | Emergency (ER) | payer SELFPAY ==
[2021-12-06 06:14] LABS: #Eosinphils 0.1 thou/uL (0.0-0.7); #Monocytes 0.9 thou/uL (0.11-0.59); #Neutrophils 6.3 thou/uL (1.40-6.50); %Basophils 0.4 % (0.0-1.0); %Eosinophils 0.9 % (0.0-10.0); %Lymphocytes 21.6 % (21.0-51.0); %Monocytes 9.6 % (0.0-10.0); %Neutrophils 67.6 % (42.0-75.0); Hemoglobin 14.2 g/dL (14.0-18.0); Mean Corpuscular HGB CONC 33.7 g/dL (32.0-36.0); Mean Corpuscular Hemoglobin 30.1 pg (27.0-31.0); Mean Corpuscular Volume 89.4 fL (78.0-98.0); Mean Platelet Volume 7.3 fL (7.4-10.4); Platelet Count 165 thou/uL (130-400); RBC Distribution Width 16.6 % (11.5-14.5); Red Blood Cell (RBC) Count 4.73 mill/uL (4.70-6.10); White Blood Cell (WBC) Count 9.3 thou/uL (4.8-10.8)
[2021-12-06 06:36] LABS: ALT (SGPT) 53 U/L (8-55); AST (SGOT) 108 U/L (5-34); Alkaline Phosphatase 103 U/L (40-110); Anion Gap 19 mmol/L (10-20); BUN (Urea Nitrogen) 6 mg/dL (8.9-20.6); Bilirubin, Total 0.3 mg/dL (0.2-1.2); Calc. Creatinine Clearance 0 mL/min (70-130); Calcium 8.4 mg/dL (7.8-10.44); Carbon Dioxide 18 mmol/L (22-29); Chloride 105 mmol/L (98-107); Estimated GFR 115; Globulin 3.9 g/dL (2.4-3.5); Glucose 225 mg/dL (70-105); Potassium 3.3 mmol/L (3.5-5.1); Protein, Total 7.9 g/dL (6.0-8.3); Sodium 139 mmol/L (136-145)
[2021-12-06 06:43] LABS: SARS-CoV-2 NAA Rapid Test Not Detected (NotDetected)
[2021-12-06] MEDS ORDERED: Ketorolac Tromethamine 30 MG/ML VIAL ONE (07:39)
[2021-12-06] MEDS ORDERED: Acetaminophen 500 MG TAB ONE (07:40)
[2021-12-06 09:09] LABS: Lactic Acid 2.3 mmol/L (0.5-2.2)
== END 2021-12-06 09:35 | disposition home or self-care (01) ==
LOC: ERS 03:02
DX: R50.9 Fever, unspecified (principal); R05.9 Cough, unspecified; I10 Essential (primary) hypertension; F17.210 Nicotine dependence, cigarettes, uncomplicated; Z20.822 Contact with and (suspected) exposure to COVID-19; Z79.899 Other long term (current) drug therapy
CPT/HCPCS: 36415; 71045; 80053; 83605; 84484; 85025; 87804; 93005; 96374; J1885; U0002

== ENCOUNTER 2021-12-29 23:32 | Emergency (ER) | payer SELFPAY ==
[2021-12-30 01:54] LABS: #Basophils 0.1 thou/uL (0.0-0.2); #Eosinphils 0.1 thou/uL (0.0-0.7); #Lymphocytes 2.6 thou/uL (1.20-3.40); #Monocytes 0.9 thou/uL (0.11-0.59); #Neutrophils 4.9 thou/uL (1.40-6.50); %Basophils 0.9 % (0.0-1.0); %Eosinophils 1.5 % (0.0-10.0); %Lymphocytes 30.5 % (21.0-51.0); %Monocytes 10.2 % (0.0-10.0); %Neutrophils 56.9 % (42.0-75.0); Hemoglobin 15.6 g/dL (14.0-18.0); Mean Corpuscular HGB CONC 34.2 g/dL (32.0-36.0); Mean Corpuscular Hemoglobin 31.2 pg (27.0-31.0); Mean Corpuscular Volume 91.1 fL (78.0-98.0); Mean Platelet Volume 7.6 fL (7.4-10.4); Platelet Count 165 thou/uL (130-400); RBC Distribution Width 15.4 % (11.5-14.5); Red Blood Cell (RBC) Count 4.99 mill/uL (4.70-6.10); White Blood Cell (WBC) Count 8.7 thou/uL (4.8-10.8)
[2021-12-30 02:10] LABS: ALT (SGPT) 109 U/L (8-55); AST (SGOT) 233 U/L (5-34); Albumin 4.6 g/dL (3.5-5.0); Alkaline Phosphatase 91 U/L (40-110); Anion Gap 18 mmol/L (10-20); BUN (Urea Nitrogen) 12 mg/dL (8.9-20.6); Calc. Creatinine Clearance 0 mL/min (70-130); Calcium 9.6 mg/dL (7.8-10.44); Carbon Dioxide 22 mmol/L (22-29); Chloride 100 mmol/L (98-107); Estimated GFR 117; Globulin 4.2 g/dL (2.4-3.5); Glucose 105 mg/dL (70-105); Potassium 3.4 mmol/L (3.5-5.1); Protein, Total 8.8 g/dL (6.0-8.3); Sodium 137 mmol/L (136-145)
[2021-12-30 02:19] LABS: Actual Bicarbonate (HCO3a) 23.4 mEq/L (22-28); Analyzer IN Cardio ER; Base Excess (BEa) -1.2 mEq/L (-2.0 to +3.0); CO2 Tension 39.1 mmHg (35.0-45.0); Calcium, Ionized (arterial) 1.13 mmol/L (1.12-1.30); Carboxyhemoglobin (COHb) 0.8 gm% (0.0-3.0); Hemoglobin (Hb) 15.8 g/dL (14.0-18.0); O2 Tension (PaO2), arterial 92.7 mmHg (80.0-100.0); Potassium - ABG Lab 3.26 mmol/L (3.70-5.30)
[2021-12-30 02:22] LABS: ALV-art Gradient 8.155 mmHg (0-20); Puncture Site LRA
== END 2021-12-30 04:23 | disposition home or self-care (01) ==
LOC: ERS 23:32
DX: R07.89 Other chest pain (principal); R06.00 Dyspnea, unspecified; I10 Essential (primary) hypertension; F17.210 Nicotine dependence, cigarettes, uncomplicated
CPT/HCPCS: 36415; 36600; 70450; 71045; 80053; 82805; 83880; 84484; 85025; 85379; 93005

== ENCOUNTER 2022-11-11 05:33 | Emergency (ER) | payer OTHER ==
[2022-11-11] MEDS ORDERED: Acetaminophen 500 MG TAB ONE (05:58)
[2022-11-11] MEDS ORDERED: Morphine 4 MG/ML VIAL ONE (05:58)
[2022-11-11 06:27] LABS: #Eosinphils 0.1 thou/uL (0.0-0.7); #Monocytes 0.9 thou/uL (0.11-0.59); #Neutrophils 10.7 thou/uL (1.40-6.50); %Basophils 0.2 % (0.0-1.0); %Eosinophils 0.5 % (0.0-10.0); %Lymphocytes 13.9 % (21.0-51.0); %Monocytes 6.6 % (0.0-10.0); %Neutrophils 78.2 % (42.0-75.0); Hematocrit 42.9 % (42.0-52.0); Hemoglobin 14.8 g/dL (14.0-18.0); Mean Corpuscular HGB CONC 34.5 g/dL (32.0-36.0); Mean Corpuscular Volume 89.9 fl (78.0-98.0); Mean Platelet Volume 9.5 fL (7.4-10.4); Platelet Count 249 10x3/uL (130-400); RBC Distribution Width 12.2 % (11.5-14.5); Red Blood Cell (RBC) Count 4.77 mill/uL (4.70-6.10); White Blood Cell (WBC) Count 13.6 10x3/uL (4.8-10.8)
[2022-11-11 06:49] LABS: ALT (SGPT) 19 U/L (8-55); AST (SGOT) 22 U/L (5-34); Albumin 4.1 g/dL (3.5-5.0); Alkaline Phosphatase 63 U/L (40-110); Anion Gap 15 mmol/L (10-20); BUN (Urea Nitrogen) 9 mg/dL (8.9-20.6); Bilirubin, Total 0.5 mg/dL (0.2-1.2); Calc. Creatinine Clearance 0 mL/min (70-130); Carbon Dioxide 21 mmol/L (22-29); Chloride 104 mmol/L (98-107); Estimated GFR 116; Globulin 3.4 g/dL (2.4-3.5); Glucose 94 mg/dL (70-105); Potassium 3.5 mmol/L (3.5-5.1); Protein, Total 7.5 g/dL (6.0-8.3); Sodium 136 mmol/L (136-145)
[2022-11-11] MEDS ORDERED: Iopamidol-370 76% 500 ML MDV (1 ML CHARGE) ONE (10:06)
== END 2022-11-11 11:00 | disposition home or self-care (01) ==
LOC: ERS 05:33
DX: S02.2XXA Fracture of nasal bones, initial encounter for closed fracture (principal); I10 Essential (primary) hypertension; F17.200 Nicotine dependence, unspecified, uncomplicated; Y08.89XA Assault by other specified means, initial encounter
CPT/HCPCS: 70450; 70486; 71260; 72125; 74177; 80053; 85025; 94760; 96374; J2270